=== PATIENT | male | born 1955 | race Caucasian/White ===

== ENCOUNTER 2020-06-17 08:02 | Outpatient (RCR) | payer OTHER, SELFPAY | END 2020-08-07 08:05 | disposition home or self-care (01) | LOC: HO.WCC 08:02 | PROVIDERS: PCP Internal Medicine; Visit Provider Physician Assistant | DX: Z09 Encounter for follow-up examination after completed treatment for conditions other than malignant neoplasm (principal); B35.9 Dermatophytosis, unspecified; E11.9 Type 2 diabetes mellitus without complications | CPT/HCPCS: 11042; 99203; 99212 ==

== ENCOUNTER 2023-08-03 11:12 | Outpatient (REF) | payer OTHER, SELFPAY ==
--- NOTE | ~2023-08-03 | XR_ITS ---
EXAMINATION: XR SHOULDER, RIGHT CLINICAL INFORMATION: Pain in right shoulder. COMPARISON: Right shoulder radiograph 07/23/2023. TECHNIQUE: Two views of the right shoulder. FINDINGS: Redemonstration of a comminuted, displaced fracture of the humeral neck with multiple displaced fragments. Faint calcifications in the adjacent soft tissues may represent some interval healing. Soft tissue calcifications adjacent to the acromion are more characteristic of chronic degenerative process. Rotation of alignment of humeral head relative to glenoid. XR/XR shoulder RT min 2V IMPRESSION: Redemonstration of comminuted, displaced fracture of the humeral neck with multiple displaced fragments. Faint calcifications in the adjacent soft tissues may represent some interval healing.
== END 2023-08-03 11:13 | disposition home or self-care (01) ==
LOC: HO.HOSX 11:12
PROVIDERS: Visit Provider Physician Assistant
DX: S42.201A Unspecified fracture of upper end of right humerus, initial encounter for closed fracture (principal); W18.09XA Striking against other object with subsequent fall, initial encounter; Y93.9 Activity, unspecified; Y92.9 Unspecified place or not applicable; Y99.9 Unspecified external cause status; Z79.899 Other long term (current) drug therapy
CPT/HCPCS: 73030; 99202

== ENCOUNTER 2023-08-03 13:48 | Outpatient (AMB) | payer OTHER, SELFPAY ==
--- NOTE | 2023-08-03 14:07 | A.OFFVIS_ITS ---
<Statement entered by Matteo Lantigua MD - 08/05/23 11:06> I spoke with Haseeb and explained that non operative treatment is standard for this injury. Surgery is indicated because he would like to optimize alignment and prevent loss of motion. I think this is reasonable but I explained that surgery does not guarantee this. I discussed the risks benefits and alternatives including but not limited to the risk of pain, infection, stiffness, need for further surgery as well as potential medical complications such as blood clots, pulmonary embolism and cardiac complications. He expressed understanding. Intake Vital Signs 08/03/23 14:09 Height 5 ft 9 in Intake Visit Reasons: FC - Displaced Rt Humerus fx fall 07/22/23 Intake Note: Haseeb is a 68 year old right hand dominant male who present today for a evaluation of his right shoulder fx, DOI 07/22/23. Patient reports he trpped over his shoes and landed on his right arm. He states that his pain is a 8/10 on the pain scale. Denies numbness and tingling. Allergies No Known Allergies Allergy (Verified 08/03/23 14:08) Medication List - Last Reconciled 08/03/23 by Sebastian Min PA-C blood sugar diagnostic (FreeStyle Lite Strips) As directed diclofenac sodium 75 mg PO BID empagliflozin (Jardiance) 10 mg PO DAILY folic acid 1 mg PO DAILY glipizide ER 10 mg PO DAILY insulin glargine (Lantus Solostar U-100 Insulin) units subcut lisinopril 40 mg PO DAILY metformin ER mg PO omeprazole 20 mg PO DAILY oxycodone 5 mg PO QID PRN sildenafil 100 mg PO DAILY sitagliptin phosphate (Januvia) 100 mg PO DAILY HPI FC - Displaced Rt Humerus fx fall 07/22/23 HPI Details 68-year-old right hand dominant male who presents to the office today for an injury he sustained to his right shoulder on 07/22/23. He states he tripped over his shoes and fell on his right arm. [place] [facility] [facility] xrays obtained along with a CT scan which demonstrated a proximal humerus fracture with angulation of the humeral head. He followed up with an outpatient orthopedic office and non surgical intervention was recommended; however, he is quite active and feels significantly limited by his shoulder injury. He presents today for a second opinion He is quite active and independent with all activities. 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 He has a history of diabetes. His baseline sugar levels are improving since his PCP adjusted his medication. His recent A1c was around 7. PFSH Surgical History (Updated 08/03/23 @ 21:43 by Sebastian Min PA-C) H/O total knee replacement Social History (Updated 08/03/23 @ 21:43 by Sebastian Min PA-C) Household Members: Spouse Patient Tobacco Use Status: Never used Tobacco Review of Systems Const All systems reviewed & are unremarkable except as noted in HPI and below Physical Exam Extrem Other: Right shoulder: Normal to inspection. Diffuse Swelling and tenderness over the proximal humerus which extends down the arm. Anterior deltoid sensation intact. Elbow and wrist ROM intact. NVI. Office Procedures Fracture Care Fracture Billing Code: Fracture Billing Code Results Reviewed Results Reviewed: Xrays were obtained in the office today and personally reviewed by me of the right shoulder show a comminuted proximal humerus fracture with angulation of the humeral head Assessment & Plan Assessment & Plan (1) Fracture of proximal end of right humerus: Code(s): S42.201A - Unspecified fracture of upper end of right humerus, initial encounter for closed fracture Qualifiers: Encounter type: initial encounter Fracture type: closed Fracture morphology: unspecified fracture morphology Qualified Code(s): S42.201A - Unspecified fracture of upper end of right humerus, initial encounter for closed fracture (2) Diabetes: Code(s): E11.9 - Type 2 diabetes mellitus without complications Plan The case was discussed with Dr Lantigua along with the patients concern for non surgical intervention given his activity level. I discussed the extent of the injury to the patient and his and options available, which include surgical vs non surgical intervention. I explained these types of fractures are often treated without surgery, especially when comminution is involved. I explained these fractures often heal well and patients often are able to perform most ADL's without much impairment. I explained there would be some loss of motion with or without surgery as the anatomy is altered. I also explained there may be some injury to the rotator cuff; which we may not be able to determine until later in his recovery process, or if he has surgery, it may be determined intraop. Injury to the rotator cuff could cause some limitations with pain and function. This could also prolong his recovery. I explained to him non operative treatment would consist of 6 weeks in a sling with gentle motion, no FF or abduction type activities. No lifting. Overall recovery likely 6 months. Surgical intervention would involve hardware fixation, followed by 6 weeks of gentle motion without any type of lifting. I explained surgical intervention does not speed up recovery, rather it may allow for the fracture fragments to appear more anatomical. It does not guarantee better functional outcomes. I also explained surgery would be followed by a course of PT to restore motion and strength once the bone is healed and stable enough to proceed. Mr. Dobbs is quite adamant he would like to proceed with surgery given the amount of instability he feels in the arm when he moves. the level of pain and wanting to obtain the best fixation possible so he can have the best chance at returning to prior level of functioning. I explained to the patient the procedure in detail along with the risks, benefits and alternatives. Risks including but not limited to infection, wound breakdown, stiffness, ongoing pain, nonunion or malunion, and possible complications with hardware. He does understand all this and would like to proceed with open reduction internal fixation of the right humerus with Dr. Lantigua. All questions answered. He will be booked accordingly. Orders: Orders XR shoulder RT min 2V Today M25.511 - Pain in right shoulder Patient Instructions: Scribed for Sebastian Min PA-C, by James Nolan medical communication specialist, on 08/03/2023 at 2:00 PM CHELSEA. Sebastian Sanchez PA-C, have personally reviewed and agree with the information entered by the scribe. Coding Level of Care Code New Pt Level 4 (81951) Diagnoses Closed fracture of proximal end of right humerus, unspecified fracture morphology, initial encounter S42.201A Encounter type: initial encounter Fracture type: closed Fracture morphology: unspecified fracture morphology Diabetes E11.9 CPT Codes Fracture Care - Fracture Billing Code: Fracture Billing Code ([id number])
== END 2023-08-03 15:13 | disposition home or self-care (01) ==
PROVIDERS: PCP Internal Medicine; Visit Provider Physician Assistant
DX: S42.201A Unspecified fracture of upper end of right humerus, initial encounter for closed fracture (principal); E11.9 Type 2 diabetes mellitus without complications
CPT/HCPCS: 99204

== ENCOUNTER 2023-08-05 11:24 | Day surgery (SDC) | payer OTHER, SELFPAY ==
--- NOTE | 2023-08-04 13:27 | P.CONAN_ITS ---
Documented by User: Traci Sue NP 08/04/23 13:27 HPI - Anesthesia Eval Consult details Narrative: 68yo M for Right Proximal Humerus Fx ORIF PMFSH Active Problems Active Problems: All Active Problems (Updated 08/03/23 @ 21:45 by Sebastian Min PA-C) Fracture of proximal end of right humerus (Acute) Diabetes (Acute) Surgical History Surgical History (Updated 08/03/23 @ 21:43 by Sebastian Min PA-C) H/O total knee replacement Social History Social History (Updated 08/03/23 @ 21:43 by Sebastian Min PA-C) Household Members: Spouse Patient Tobacco Use Status: Never used Tobacco Second Hand Smoke Exposure: No Use of substances other than those prescribed or required for medical reasons: No Are you DNR?: No Advance Directives: No Advance Directives Information Provided: Yes Advance Directives on File: No Meds Allergies Allergy/AdvReac Type Severity Reaction Status Date / Time No Known Allergies Allergy Verified 08/03/23 14:08 Home Medications Medication Instructions Recorded Confirmed Last Taken Type blood sugar diagnostic (FreeStyle #10 ea 08/03/23 08/03/23 Unknown History Lite Strips) diclofenac sodium 75 mg 75 mg PO BID 08/03/23 08/03/23 Unknown History tablet,delayed release empagliflozin 10 mg tablet 10 mg PO DAILY 08/03/23 08/03/23 Unknown History (Jardiance) folic acid 1 mg tablet 1 mg PO DAILY 08/03/23 08/03/23 Unknown History glipizide 10 mg tablet, extended 10 mg PO DAILY 08/03/23 08/03/23 Unknown History release 24 hr insulin glargine 100 unit/mL (3 unit subcut 08/03/23 08/03/23 Unknown History mL) subcutaneous pen (Lantus Solostar U-100 Insulin) lisinopril 40 mg tablet 40 mg PO DAILY 08/03/23 08/03/23 Unknown History metformin 500 mg 24 hr mg PO 08/03/23 08/03/23 Unknown History tablet,extended release omeprazole 20 mg capsule,delayed 20 mg PO DAILY 08/03/23 08/03/23 Unknown History release oxycodone 5 mg tablet 5 mg PO QID PRN 08/03/23 08/03/23 Unknown History sildenafil 100 mg tablet 100 mg PO DAILY 08/03/23 08/03/23 Unknown History sitagliptin phosphate 100 mg 100 mg PO DAILY 08/03/23 08/03/23 Unknown History tablet () Assessment and Plan Assessment Anesthesia Assessment: Chart Reviewed Documented by User: Christopher Marx MD 08/05/23 14:24 PMFSH Family History Family history of problems with anesthesia: No Surgical History Surgical History (Updated 08/03/23 @ 21:43 by Sebastian Min PA-C) H/O total knee replacement History of Problems with Anesthesia: No Social History Social History (Updated 08/03/23 @ 21:43 by Sebastian Min PA-C) Household Members: Spouse Patient Tobacco Use Status: Never used Tobacco Second Hand Smoke Exposure: No Use of substances other than those prescribed or required for medical reasons: No Are you DNR?: No Advance Directives: No Advance Directives Information Provided: Yes Advance Directives on File: No Meds Allergies Allergy/AdvReac Type Severity Reaction Status Date / Time No Known Allergies Allergy Verified 08/03/23 14:08 Active Medications: last was yesterday Home Medications Medication Instructions Recorded Confirmed Last Taken Type blood sugar diagnostic (FreeStyle #10 ea 08/03/23 08/03/23 Unknown History Lite Strips) diclofenac sodium 75 mg 75 mg PO BID 08/03/23 08/03/23 Unknown History tablet,delayed release empagliflozin 10 mg tablet 10 mg PO DAILY 08/03/23 08/03/23 Unknown History (Jardiance) folic acid 1 mg tablet 1 mg PO DAILY 08/03/23 08/03/23 Unknown History glipizide 10 mg tablet, extended 10 mg PO DAILY 08/03/23 08/03/23 Unknown History release 24 hr insulin glargine 100 unit/mL (3 unit subcut 08/03/23 08/03/23 Unknown History mL) subcutaneous pen (Lantus Solostar U-100 Insulin) lisinopril 40 mg tablet 40 mg PO DAILY 08/03/23 08/03/23 Unknown History metformin 500 mg 24 hr mg PO 08/03/23 08/03/23 Unknown History tablet,extended release omeprazole 20 mg capsule,delayed 20 mg PO DAILY 08/03/23 08/03/23 Unknown H istory release oxycodone 5 mg tablet 5 mg PO QID PRN 08/03/23 08/03/23 Unknown History sildenafil 100 mg tablet 100 mg PO DAILY 08/03/23 08/03/23 Unknown History sitagliptin phosphate 100 mg 100 mg PO DAILY 08/03/23 08/03/23 Unknown History tablet (Januvia) Exam Airway Mallampati Class: II TM Dist: >3cm Neck ROM: Full Loose/Missing/Broken Teeth: No Heart: ok Lungs: ok. SpO2 95% room air. Assessment and Plan Assessment Anesthesia Assessment: Anesthesia Plan Discussed Final Anesthetic Review Family History of Problems with Anesthesia: No History of Problems with Anesthesia: No NPO: Yes ASA Class: III Final Preanesthetic Review: No Changes in Pt Med Stat, Meds/Allgs Chart Reviewed, Consent Obtained/Reviewed and Anes Risks/Benef Reviewed Patient Risk: Intermediate Procedure Risk: Intermediate Anesthetic Plan Anesthetic Plan: GA and Regional Block Disposition: Standard PACU
--- NOTE | ~2023-08-05 | FL_ITS ---
EXAMINATION: XR FLUOROSCOPY WITH IMAGES CLINICAL INFORMATION: ORIF proximal humerus, right. COMPARISON: Previous x-ray 07/23/2023 TECHNIQUE: Fluoroscopy Supervised By: Dr. Matteo Lantigua. Fluoroscopy Time: 0.4 minutes. Cumulative Dose: 9.13 mGy. DAP: 0.158 Gycm2. Images: 2. FINDINGS: Images demonstrate plate and screw fixation of the right proximal humeral fracture with improved alignment. FL/FL guidance in OR IMPRESSION: Fluoroscopic guidance for ORIF of right proximal humeral fracture.
[2023-08-05 11:44] VITALS: BMI 35.5
[2023-08-05 11:54] VITALS: BP 175/76; PULSE 79; RESP 18; TEMP 36.8; O2SAT 95
[2023-08-05] MEDS: Lactated Ringers 1,000 ML 100 ML IVCONT (12:05)
[2023-08-05 12:08] LABS: Glucose, Whole Blood 160 mg/dL (60-115)
--- NOTE | 2023-08-05 16:11 | P.BOP_ITS ---
Brief Operative Note Date of Service: 08/05/23 Pre-op diagnosis: right proximal humerus fracture Post-op diagnosis: same Procedure: ORIF right proximal humerus Implants: [place] Surgeon: Matteo Lantigua MD Anesthesia: GETA Was an Slurry Tank Tender used for this Procedure?: No Estimated blood loss (mL): 100 IV fluids (mL): 1,000 Pathology: none sent Condition: stable Disposition: PACU
[2023-08-05 16:29] VITALS: BP 116/60; PULSE 70; RESP 16; TEMP 36.1; O2SAT 96
[2023-08-05 16:34] VITALS: BP 111/69; PULSE 69; RESP 16; O2SAT 100
[2023-08-05 16:39] VITALS: BP 127/67; PULSE 70; RESP 16; O2SAT 97
[2023-08-05] MEDS: Acetaminophen 325 MG TABLET 650 MG PO (16:42)
[2023-08-05 16:44] VITALS: BP 122/57; PULSE 69; RESP 16; O2SAT 99
[2023-08-05 16:59] VITALS: BP 128/56; PULSE 71; RESP 16; TEMP 36.4; O2SAT 99
--- NOTE | 2023-08-13 08:57 | W.PM.OPN ---
Operative Note Operative Note Date of Service: 08/05/23 Narrative: Date of Service: 08/05/23 Pre-op diagnosis: right proximal humerus fracture Post-op diagnosis: same Procedure: ORIF right proximal humerus Implants: Niels Surgeon: Matteo Lantigua MD Anesthesia: GETA Was an Heavy Equipment Supervisor used for this Procedure?: No Estimated blood loss (mL): 100 IV fluids (mL): 1,000 Pathology: none sent Condition: stable Disposition: PACU Indications: THis is a 68 active M with a 2 part proximal humerus fracture. I reviewed the details of his fracture with him and advised him that surgery, based on large studies, is not assocated with improved outcomes compared to non operative management. I did explain that theoretically we could improve the alignment and this may help his ROM. The radiographs suggested rotation of the head and I do think his ROM will be limited. He was very adamant that everything be done to preserve motion. I, therefore, agreed that surgery could potentially accomplish this and we would try to reduce the fracture to allow for more motion post operatively. He understood the risks benefits and alternatives including but not limited to the risk of pain, infection, stiffness, need for further surgery as well as potential medical complications such as blood clots, pulmonary embolism and cardiac complications. Procedure in detail: Patient was brought to the operating room and placed in the beach chair position on the surgical table. The limb was prepped and draped in standard sterile fashion and a time out was called to identify proper site, proper procedure and IV antibiotics per weight were administered. I began by making a deltopectoral incision from the coracoid to the pectoralis insertion.? Blunt dissection identified the cephalic vein which was retracted laterally.? Blunt dissection was taken down to the 3 sisters. I then dissected proximally and laterally to the fracture. A Fakuda was placed under the deltoid and the fracture was identified. This was a displaced 2 part proximal humerus fracture. I mobilised the head and brought it out of flexion and retroversion and placed a 3 hole locking plate. Bicortical shaft screws were applied and biplanar fluoro was used to confirm reduction. Locking head screws were placed using standard AO technique. I was satisfied with the reduction and the hardware position. Therefore all instrumentation was removed .I then irrigated copiously.? I closed in a layered fashion with absorbable suture and taqueria and the patient was placed in a sterile dressing and an abduction sling.? He was extubated brought to recovery room stable condition there were no known complications.
== END 2023-08-05 17:11 | disposition home or self-care (01) ==
PROVIDERS: PCP Physician Assistant Medical; Visit Provider Orthopaedic Surgery
PROC: (CPT 23615; principal; 2023-08-05 13:30)
DX: S42.291A Other displaced fracture of upper end of right humerus, initial encounter for closed fracture (principal); W01.0XXA Fall on same level from slipping, tripping and stumbling without subsequent striking against object, initial encounter; E11.9 Type 2 diabetes mellitus without complications; Y93.9 Activity, unspecified; Y92.9 Unspecified place or not applicable; Y99.9 Unspecified external cause status; Z79.4 Long term (current) use of insulin; Z79.899 Other long term (current) drug therapy
CPT/HCPCS: 23615; 82947; C1713; J0665; J0690; J2250; J2704; J2795; J3010

== ENCOUNTER → 2023-08-05 11:24 | Outpatient (BNV) | payer OTHER, SELFPAY | PROVIDERS: PCP Physician Assistant Medical; Visit Provider Orthopaedic Surgery | DX: S42.221A 2-part displaced fracture of surgical neck of right humerus, initial encounter for closed fracture (principal) | CPT/HCPCS: 23615 ==

== ENCOUNTER 2023-08-09 12:28 | Outpatient (AMB) | payer OTHER, SELFPAY ==
--- NOTE | 2023-08-09 12:33 | A.OFFVIS_ITS ---
Intake Intake Visit Reasons: PO- Bandage change/Rt Humerus ORIF 08/05 NE Intake Note: Haseeb 68 yr old male presents today for a dressing change/ wound check for his P.O right humerus ORIF from 08/05/[address] Lantigua. Allergies No Known Allergies Allergy (Verified 08/09/23 12:34) HPI PO- Bandage change/Rt Humerus ORIF 08/05 NE HPI Details Haseeb is a 68 year old right hand dominant man who presents S/P right proximal humerus fracture ORIF, DOS: 08/05/[address] Lantigua. He is here for a wound check & dressing change. Mild staining noted on the Aquacel bandage. He says he is doing well. [facility] Surgical History (Updated 08/09/23 @ 12:36 by Rosalio Givens) H/O total knee replacement Social History Household Members: Spouse Patient Tobacco Use Status: Never used Tobacco Second Hand Smoke Exposure: No Review of Systems Const All systems reviewed & are unremarkable except as noted in HPI and below Physical Exam Const General: no acute distress, alert and awake Orientation/consciousness: patient oriented x3 HEENT Head: Yes normocephalic and Yes atraumatic Eyes EOM: EOMs intact bilaterally Resp Effort & Inspection: normal respiratory effort and able to speak in complete sentences Cardio Jugular venous distension: no JVD Skin General skin exam: turgor normal Rashes: no rashes Neuro General: patient oriented x3 Extrem Other: Right Shoulder: Incision site is clean, dry, and intact. [place] intact. No surrounding erythema or drainage. No signs of infection. NVI. Psych Appearance: grossly normal Affect: normal affect Attitude: cooperative Assessment & Plan Assessment & Plan (1) Status post open reduction and internal fixation (ORIF) of fracture: Code(s): Z98.890 - Other specified postprocedural states; Z87.81 - Personal history of (healed) traumatic fracture (2) Fracture of proximal end of right humerus: Code(s): S42.201A - Unspecified fracture of upper end of right humerus, initial encounter for closed fracture Qualifiers: Encounter type: initial encounter Fracture morphology: unspecified fracture morphology Fracture type: closed Qualified Code(s): S42.201A - Uns pecified fracture of upper end of right humerus, initial encounter for closed fracture Plan Haseeb is a 68 year old right hand dominant man who presents S/P right proximal humerus ORIF, DOS: 08/05/[address] Lantigua. He is here for a wound check & dressing change. We removed his Aquacell dressing while in the office today, there was minimal bloody staining. His wound was cleaned with Chlora-prep and redressed with an Aquacell dressing. No signs of infection are ntoed. He will continue to wear his sling, as instructed, and avoid any lifting. He will follow up for his regularly scheduled post-op appointment, sooner prn. Patient Instructions: Scribed for Luda Parra PA-C by Rosalio Givens, medical doctor md, on 08/09/23 at 12:45 PM EST. Coding Level of Care Code Global (65024) Diagnoses Status post open reduction and internal fixation (ORIF) of fracture Z98.890; Z87.81 Closed fracture of proximal end of right humerus, unspecified fracture morphology, initial encounter S42.201A Encounter type: initial encounter Fracture morphology: unspecified fracture morphology Fracture type: closed
== END 2023-08-09 13:12 | disposition home or self-care (01) ==
PROVIDERS: PCP Physician Assistant Medical; Visit Provider Physician Assistant
DX: Z98.890 Other specified postprocedural states (principal); Z87.81 Personal history of (healed) traumatic fracture; S42.201A Unspecified fracture of upper end of right humerus, initial encounter for closed fracture
CPT/HCPCS: 99024

== ENCOUNTER → 2023-08-09 12:28 | Outpatient (BNVA) | payer OTHER, SELFPAY | PROVIDERS: PCP Physician Assistant Medical; Visit Provider Physician Assistant | DX: S42.201D Unspecified fracture of upper end of right humerus, subsequent encounter for fracture with routine healing (principal); Z98.890 Other specified postprocedural states; Z87.81 Personal history of (healed) traumatic fracture | CPT/HCPCS: 99212 ==

== ENCOUNTER 2023-08-15 10:49 | Outpatient (AMB) | payer OTHER, SELFPAY ==
--- NOTE | 2023-08-15 10:50 | MHC.OFFVIS ---
Intake Intake Visit Reasons: PO-Rt Humerus ORIF 08/05 Intake Note: Haseeb 68 yr old male presents today for his P.O right humerus ORIF from 08/05/[address] Lantigua. Allergies No Known Allergies Allergy (Verified 08/15/23 10:53) HPI PO-Rt Humerus ORIF 08/05 HPI Details 68-year-old male who presents in the office today 10 days status post right proximal humerus ORIF, which was performed on 08/05/[address] Lantigua. He is wearing the Ultrasling as directed. Pain is managed. No additional complaints. [facility] Surgical History (Updated 08/09/23 @ 12:36 by Rosalio Givens) H/O total knee replacement Social History (Reviewed 08/09/23 @ 12:34 by Vanessa Guerrero [facility] [place]) Household Members: Spouse Patient Tobacco Use Status: Never used Tobacco Second Hand Smoke Exposure: No Review of Systems Const All systems reviewed & are unremarkable except as noted in HPI and below Physical Exam Const General: cooperative, healthy appearing and no acute distress Resp Effort & Inspection: normal respiratory effort and able to speak in complete sentences Cardio Rate: regular rate Peripheral pulses: Peripheral pulses 2+ throughout GI Palpation (GI): Soft to palpation Skin Lesions: no lesions Rashes: no rashes Extrem Other: Right shoulder: Incision site is clean, dry, and intact. [place] intact. No surrounding erythema or drainage. No signs of infection. NVI. Right hand: Normal to inspection. No ecchymosis, erythema, or edema. Able to perform full finger flexion, extension, abduction, adduction, finger cross, okay sign, and thumbs up without deficit. Able to make a closed fist. Sensation intact. Capillary refill is brisk. Radial pulse intact. Assessment & Plan Assessment & Plan (1) Status post open reduction and internal fixation (ORIF) of fracture: Code(s): Z98.890 - Other specified postprocedural states; Z87.81 - Personal history of (healed) traumatic fracture (2) Fracture of proximal end of right humerus: Code(s): S42.201A - Unspecified fracture of upper end of right humerus, initial encounter for closed fracture Qualifiers: Encounter type: initial encounter Fracture morphology: unspecified fracture morphology Fracture type: closed Qualified Code(s): S42.201A - Unspecified fracture of upper end of right humerus, initial encounter for closed fracture Plan Mr. Dobbs is a 68-year-old male who presents in the office today 10 days status post right proximal humerus ORIF, which was performed on 08/05/[address] Lantigua. [place] were removed and steri-stripes were applied while in the office today. Dr. Lantigua was available to see the patient with me today and a collaborative treatment plan was made. He was educated to refrain from performing forward flexion and extension at this time. He may work on gentle elbow, wrist, and hand ROM. I have place a referral to physical therapy to work on pendulum exercises of the elbow, wrist, and hand. Follow up will be in 4 weeks with repeat x-rays, or sooner if needed. X-rays of the right shoulder which were obtained while in the office today and were reviewed by me, Luda Parra PA-C, revealed intact orthopedic hardware and a commuted proximal humerus fracture. Orders: Orders XR humerus RT Today S42.201A - Unspecified fracture of upper end of right humerus, initial encounter for closed fracture, Z87.81 - Personal history of (healed) traumatic fracture, Z98.890 - Other specified postprocedural states Patient Instructions: Scribed for Luda Parra PA-C by Bethany Granados pediatric medical assistant, on 08/15/2023 at 10:56 am, EST. Coding Level of Care Code Global (48357) Diagnoses Status post open reduction and internal fixation (ORIF) of fracture Z98.890; Z87.81 Closed fracture of proximal end of right humerus, unspecified fracture morphology, initial encounter S42.201A Encounter type: initial encounter Fracture morphology: unspecified fracture morphology Fracture type: closed
== END 2023-08-15 11:37 | disposition home or self-care (01) ==
PROVIDERS: PCP Physician Assistant Medical; Visit Provider Physician Assistant
DX: Z98.890 Other specified postprocedural states (principal); Z87.81 Personal history of (healed) traumatic fracture; S42.201A Unspecified fracture of upper end of right humerus, initial encounter for closed fracture
CPT/HCPCS: 99024

== ENCOUNTER 2023-08-15 10:49 | Outpatient (REF) | payer OTHER, SELFPAY ==
--- NOTE | ~2023-08-15 | XR_ITS ---
EXAMINATION: XR HUMERUS, RIGHT CLINICAL INFORMATION: Fracture of right humerus. COMPARISON: X-ray the right shoulder July 2023. Intraoperative imaging performed 08/15/2023. TECHNIQUE: AP and lateral views of the right humerus. FINDINGS: Plate and screw fixation noted along the proximal humerus crossing the previously noted comminuted proximal humerus fracture. There is persistent posterior and lateral displacement of the distal fragment but overall decreased displacement and improved alignment compared to previous. Comparison with the intraoperative imaging is limited given the difference in projections. Mild arthrosis of the acromioclavicular joint. Skin taqueria in place. XR/XR humerus RT IMPRESSION: Postop changes related to orthopedic fixation of previously noted humerus fracture. Overall improved alignment compared with the preoperative examination. However question slight increased displacement of the proximal fragment compared with the intraoperative imaging. Exact comparison is limited given the differences in imaging exams. Continued follow-up may help evaluate for any change in alignment compared with the intraoperative exam.
== END 2023-08-15 10:50 | disposition home or self-care (01) ==
LOC: HO.HOSX 10:49
PROVIDERS: PCP Physician Assistant Medical; Visit Provider Physician Assistant
DX: S42.201D Unspecified fracture of upper end of right humerus, subsequent encounter for fracture with routine healing (principal); Z98.890 Other specified postprocedural states; X58.XXXD Exposure to other specified factors, subsequent encounter
CPT/HCPCS: 73060; 99212

== ENCOUNTER 2023-09-13 09:27 | Outpatient (REF) | payer OTHER, SELFPAY ==
--- NOTE | ~2023-09-13 | XR_ITS ---
EXAMINATION: XR SHOULDER, RIGHT CLINICAL INFORMATION: Right shoulder pain. COMPARISON: August 15, 2023. TECHNIQUE: Two views of the right shoulder. XR/XR shoulder RT min 2V FINDINGS/IMPRESSION: Examination demonstrates a comminuted fracture of the right humeral head. The patient is status post metallic fixation plate and screws across the humeral head and proximal humeral diaphysis. Major bony fragments remain displaced, similar compared with August 15, 2023. No obvious bony callus formation is appreciated. The images are available for orthopedic review on PACS.
== END 2023-09-13 09:28 | disposition home or self-care (01) ==
LOC: HO.HOSX 09:27
PROVIDERS: Visit Provider Physician Assistant
DX: Z98.890 Other specified postprocedural states (principal); Z87.81 Personal history of (healed) traumatic fracture; E11.9 Type 2 diabetes mellitus without complications
CPT/HCPCS: 73030; 99212

== ENCOUNTER 2023-09-13 10:36 | Outpatient (AMB) | payer OTHER, SELFPAY ==
--- NOTE | 2023-09-13 10:53 | A.OFFVIS_ITS ---
Intake Vital Signs 09/13/23 10:54 Height 5 ft 9 in Weight 240 lb BMI 35.4 Intake Visit Reasons: PO-Rt Humerus ORIF 08/05 NE Intake Note: Haseeb is a 68 yr old male presents today for his post op appointment s/p right humerus ORIF,08/05/23 NE. Patient reports he is doing well however complaints of burning pain last night making it difficult to sleep, Finds no relief with Tylenol. He continues to do at home gentle ROM exercises. Allergies No Known Allergies Allergy (Verified 09/13/23 10:57) HPI PO-Rt Humerus ORIF 08/05 NE HPI Details 68-year-old male who presents in the off ice today 1 month status post right proximal humerus ORIF, which was performed on 08/05/[address] Lantigua. I last saw the patient in the office on 08/15/2024 where he was educated to refrai n from performing forward flexion and extension. He was referred to physical therapy to work on pendulum exercises of the elbow, wrist, and hand. While in the office today the patient reports he is doing well. However, he complains of a burning pain in the right shoulder beginning last night. He states he finds no relief with Tylenol. He states he continue to work on gentle ROM home exercises. [facility] Surgical History H/O total knee replacement Social History Household Members: Spouse Patient Tobacco Use Status: Never used Tobacco Second Hand Smoke Exposure: No Review of Systems Const All systems reviewed & are unremarkable except as noted in HPI and below Physical Exam Vital Signs: BMI result Body Mass Index 35.4 Const General: cooperative, healthy appearing and no acute distress Resp Effort & Inspection: normal respiratory effort and able to speak in complete sentences Cardio Rate: regular rate Peripheral pulses: Peripheral pulses 2+ throughout GI Palpation (GI): Soft to palpation Skin Lesions: no lesions Rashes: no rashes Extrem Other: Right shoulder: Incision site is clean, dry, and intact. No surrounding erythema or drainage. No signs of infection. Able to perform full elbow, wrist, and hand ROM. ROM of the shoulder was not performed. NVI. Assessment & Plan Assessment & Plan (1) Status post open reduction and internal fixation (ORIF) of fracture: Comment: Right proximal humerus ORIF 08/05/2023 Dr. Matteo Lantigua. Code(s): Z98.890 - Other specified postprocedural states; Z87.81 - Personal history of (healed) traumatic fracture (2) Diabetes: Code(s): E11.9 - Type 2 diabetes mellitus without complications Plan Mr. Dobbs is a 68-year-old male who presents in the office today 1 month status post right proximal humerus ORIF, which was performed on 08/05/[address] Hunter holcomb. I last saw the patient in the office on 08/15/2024 where he was educated to refrain from performing forward flexion and extension. He was referred to physical therapy to work on pendulum exercises of the elbow, wrist, and hand. While in the office today the patient reports he is doing well. However, he complains of a burning pain in the right shoulder beginning last night. He states he finds no relief with Tylenol. He states he continue to work on gentle ROM home exercises. I discussed the case with Dr. Lantigua, who would personally like to see the patient in the office later this week to discuss his healing progress. Follow up will be with Dr. Lantigua, or sooner if needed. X-rays of the right shoulder which were obtained while in the office today and were reviewed by me, Luda Parra PA-C, revealed slight increased displacement of the proximal humerus compared to fixation x-rays obtained on 08/13/2023. Orders: Orders XR shoulder RT min 2V Today M25.519 - Pain in unspecified shoulder Patient Instructions: Scribed for Luda Parra PA-C by Bethany Granados manager of medical, on 09/13/2023 at 10:50 am, EST. Coding Level of Care Code Global (84879) Diagnoses Status post open reduction and internal fixation (ORIF) of fracture Z98.890; Z87.81 Diabetes E11.9
[2023-09-13 10:54] VITALS: BMI 35.4
== END 2023-09-13 11:25 | disposition home or self-care (01) ==
PROVIDERS: PCP Physician Assistant Medical; Visit Provider Physician Assistant
DX: Z98.890 Other specified postprocedural states (principal); Z87.81 Personal history of (healed) traumatic fracture; E11.9 Type 2 diabetes mellitus without complications
CPT/HCPCS: 99024

== ENCOUNTER 2023-09-16 09:27 | Outpatient (AMB) | payer OTHER, SELFPAY ==
--- NOTE | 2023-09-16 09:33 | MHC.OFFVIS ---
Intake Intake Visit Reasons: PO-Rt Humerus ORIF 08/05 NE Intake Note: Haseeb is a 68 year old male who presents today VIA telephone for a follow up of his right arm, Rt Humerus ORIF 08/05/23 Allergies No Known Allergies Allergy (Verified 09/13/23 10:57) HPI PO-Rt Humerus ORIF 08/05 NE HPI Details Haseeb is a 68 year old man who presents for a telehealth appointment ~5 weeks S/p right proximal humerus ORIF. He was last seen by MONIK Parra on 09/13/23 where he complained of a burning pain that began recently in his shoulder. He has been attending PT and doing at-home exercise. [facility] Surgical History H/O total knee replacement Social History Household Members: Spouse Patient Tobacco Use Status: Never used Tobacco Second Hand Smoke Exposure: No Review of Systems Const All systems reviewed & are unremarkable except as noted in HPI and below Physical Exam Const General: no acute distress, alert and awake Orientation/consciousness: patient oriented x3 Resp Effort & Inspection: normal respiratory effort and able to speak in complete sentences Neuro General: patient oriented x3 Results Reviewed Results Reviewed: I personally reviewed relevant radiographs. Examination demonstrates a comminuted fracture of the right humeral head. The patient is status post metallic fixation plate and screws across the humeral head and proximal humeral diaphysis. Major bony fragments remain displaced, similar compared with August 15, 2023. No obvious bony callus formation is appreciated. Assessment & Plan Assessment & Plan (1) Status post open reduction and internal fixation (ORIF) of fracture: Code(s): Z98.890 - Other specified postprocedural states; Z87.81 - Personal history of (healed) traumatic fracture Plan: The radiographs continue to demonstrate change in hardware alignment compared in intra-op films. There is displacement of the tuberosity fragment. I discussed my concern with Haseeb. I think this is nearing hardware failure. He is feeling better however and using his arm more. I would like to see him in 2 weeks. In the meantime he will continue gentle activity as tolerated with no resistance and no overhead lifting.. Plan Prepared for Matteo Lantigua MD by Rosalio Givens, medical records technician, on 09/16/23 at 9:37 AM, EST. Telehealth Telehealth Location of provider rendering services: practice address Location of patient: address on file Patient Identification confirmed using: Name, : Yes Telehealth method: voice only Patient verbally consented to treatment: Yes Patient verbally consented to billing insurance company: Yes Patient informed of any privacy concerns related to visit: Yes Minutes spent on Phone/Video with Pt.: 10 Coding Level of Care Code Global (15095) Diagnoses Status post open reduction and internal fixation (ORIF) of fracture Z98.890; Z87.81
== END 2023-09-16 10:54 | disposition home or self-care (01) ==
LOC: HO.HOS 09:27
PROVIDERS: PCP Physician Assistant Medical; Visit Provider Orthopaedic Surgery
DX: Z98.890 Other specified postprocedural states (principal); Z87.81 Personal history of (healed) traumatic fracture
CPT/HCPCS: 99024

== ENCOUNTER → 2023-09-16 09:27 | Outpatient (BNVA) | payer OTHER, SELFPAY | PROVIDERS: PCP Physician Assistant Medical; Visit Provider Orthopaedic Surgery | DX: S42.291D Other displaced fracture of upper end of right humerus, subsequent encounter for fracture with routine healing (principal); Z98.890 Other specified postprocedural states | CPT/HCPCS: 99212 ==

== ENCOUNTER 2023-10-03 07:27 | Outpatient (REF) | payer OTHER, SELFPAY ==
--- NOTE | ~2023-10-03 | XR_ITS ---
EXAMINATION: XR SHOULDER, RIGHT CLINICAL INFORMATION: Right shoulder pain. COMPARISON: Previous radiographs, most recent, 09/13/2023 TECHNIQUE: 2 views of the right shoulder. FINDINGS: Slightly more lucent appearance of the humeral head at the level of proximal screws on one of the 2 views. Otherwise, no significant change in alignment of displaced proximal right humeral fracture with hardware. The fragmented appearance to the superior humeral head is unchanged. Visualized ribs and lung are unremarkable. XR/XR shoulder RT min 2V IMPRESSION: Redemonstration displaced proximal right humeral fracture with sideplate and screws. Question slight increasing lucency right humeral head about the proximal screws.
== END 2023-10-03 07:28 | disposition home or self-care (01) ==
LOC: HO.HOSX 07:27
PROVIDERS: Visit Provider Orthopaedic Surgery
DX: M25.511 Pain in right shoulder (principal); Z96.611 Presence of right artificial shoulder joint; Z87.81 Personal history of (healed) traumatic fracture
CPT/HCPCS: 73030; 99212

== ENCOUNTER 2023-10-03 13:20 | Outpatient (AMB) | payer OTHER, SELFPAY ==
[2023-10-03 13:29] VITALS: BMI 36.8
--- NOTE | 2023-10-03 13:29 | MHC.OFFVIS ---
Intake Vital Signs 10/03/23 13:29 Height 5 ft 9 in Weight 249 lb BMI 36.8 Intake Visit Reasons: OV-Rt Humerus ORIF 08/05/23-follow up Intake Note: Haseeb is a 68 year old right hand dominant male presents today for his post op appointment s/p right humerus ORIF,08/05/23 NE. At his last visit hardware alignment/failure was discussed. Patient reports that he is feeling better every day Allergies No Known Allergies Allergy (Verified 10/03/23 13:32) HPI OV-Rt Humerus ORIF 08/05/23-follow up HPI Details Haseeb is a 68 year old man who returns ~7 weeks S/P right proximal humerus ORIF. There are concerns over possible hardware failure. He says he is doing well and is happy with the use of his shoulder. [facility] Surgical History H/O total knee replacement Social History Household Members: Spouse Patient Tobacco Use Status: Never used Tobacco Second Hand Smoke Exposure: No Review of Systems Const All systems reviewed & are unremarkable except as noted in HPI and below Physical Exam Vital Signs: BMI result Body Mass Index 36.8 Const General: no acute distress, alert and awake Orientation/consciousness: patient oriented x3 HEENT Head: Yes normocephalic and Yes atraumatic Eyes EOM: EOMs intact bilaterally Resp Effort & Inspection: normal respiratory effort and able to speak in complete sentences Cardio Jugular venous distension: no JVD Skin General skin exam: turgor normal Rashes: no rashes Neuro General: patient oriented x3 Extrem Other: ER to 15 passive abduction to 60 active FF to 50 Psych Appearance: grossly normal Affect: normal affect Attitude: cooperative Results Reviewed Results Reviewed: IMPRESSION: Redemonstration displaced proximal right humeral fracture with sideplate and screws. Question slight increasing lucency right humeral head about the proximal screws. Assessment & Plan Assessment & Plan (1) Status post open reduction and internal fixation (ORIF) of fracture: Code(s): Z98.890 - Other specified postprocedural states; Z87.81 - Personal history of (healed) traumatic fracture Plan: There is partial screw cutout and loss of fixation that is stable and unchanged from prior. He feels well and I ordered PT for gentle ROM. I will see him back in one month. I have a high index of suspicion that this will require hemiarthroplasty but he is moving his shoulder well and has minimal pain. Plan Prepared for Matteo Lantigua MD by Rosalio Givens, medical office scheduler, on 10/03/23 at 1:34 PM, EST. Orders: Orders XR shoulder RT min 2V 10/03/23 M25.519 - Pain in unspecified shoulder PT Evaluation and Treatment Today Z87.81 - Personal history of (healed) traumatic fracture, Z98.890 - Other specified postprocedural states Coding Level of Care Code Global (60322) Diagnoses Status post open reduction and internal fixation (ORIF) of fracture Z98.890; Z87.81
== END 2023-10-03 14:06 | disposition home or self-care (01) ==
PROVIDERS: PCP Physician Assistant Medical; Visit Provider Orthopaedic Surgery
DX: Z98.890 Other specified postprocedural states (principal); Z87.81 Personal history of (healed) traumatic fracture
CPT/HCPCS: 99024

== ENCOUNTER 2023-11-03 09:24 | Outpatient (REF) | payer OTHER, SELFPAY ==
--- NOTE | ~2023-11-03 | XR_ITS ---
EXAMINATION: XR SHOULDER, RIGHT CLINICAL INFORMATION: Pain and unspecified shoulder. COMPARISON: 10/05/2023 TECHNIQUE: 3 views of the right shoulder. FINDINGS: Redemonstration of displaced proximal right humeral fracture with orthopedic hardware including plate and multiple screws. Fracture lines are visible, but less distinct, suggesting some interval healing. Alignment is improved. Fragmented appearance of superior humeral head as previously noted is less conspicuous. XR/XR shoulder RT min 2V IMPRESSION: Redemonstration of displaced proximal right humeral fracture with orthopedic hardware including plate and multiple screws. Fracture lines are visible, but less distinct, suggesting some interval healing. Alignment is improved.
== END 2023-11-03 09:25 | disposition home or self-care (01) ==
LOC: HO.HOSX 09:24
PROVIDERS: Visit Provider Orthopaedic Surgery
DX: M25.511 Pain in right shoulder (principal); Z98.890 Other specified postprocedural states; Z87.81 Personal history of (healed) traumatic fracture
CPT/HCPCS: 73030; 99212

== ENCOUNTER 2023-11-03 10:39 | Outpatient (AMB) | payer OTHER, SELFPAY ==
--- NOTE | 2023-11-03 10:50 | A.OFFVIS_ITS ---
Intake Vital Signs 11/03/23 10:57 Height 5 ft 9 in Weight 245 lb BMI 36.2 Intake Visit Reasons: PO -Rt Humerus ORIF 08/05/23-one month follow up Intake Note: Haseeb is a 68 year old right hand dominant male presents today for his post op appointment s/p right humerus ORIF,08/05/23 NE. At his last visit hardware alignment/failure was discussed. Patient reports that he is feeling pain in the arm, described as a burning pain. Allergies No Known Allergies Allergy (Verified 10/03/23 13:32) HPI PO -Rt Humerus ORIF 08/05/23-one month follow up HPI Details Haseeb is 3 months status post right humerus ORIF. He states he injured his right shoulder slightly over last couple of days and has anterior bicipital pain but overall he feels like he has been improving. He has only been doing physical therapy for a week. He does describe pain and inability to abduct. He does feel much improved from last visit however [facility] Surgical History H/O total knee replacement Social History Household Members: Spouse Patient Tobacco Use Status: Never used Tobacco Second Hand Smoke Exposure: No Physical Exam Vital Signs: BMI result Body Mass Index 36.2 Extrem Other: 25 degrees of passive external rotation. 90 degrees of passive abduction. There is no pain with these maneuvers. Approximately 20-30 degrees of isolated glenohumeral abduction without scapular recruitment. TTP anterior biceps No painful crepitus with passive ROM Results Reviewed Results Reviewed: I personally reviewed relevant radiographs. No change in hardware alignment compared to prior Fracture line still evident and lucency around screws but articulation grossly intact Assessment & Plan Assessment & Plan (1) Status post open reduction and internal fixation (ORIF) of fracture: Code(s): Z98.890 - Other specified postprocedural states; Z87.81 - Personal history of (healed) traumatic fracture Plan: Has only been in PT for one week. No evidence cliniaclly of screw penetration into joint, f/u 4 weeks cont PT Orders: Orders XR shoulder RT min 2V Today M25.519 - Pain in unspecified shoulder Coding Level of Care Code Global (14098) Diagnoses Status post open reduction and internal fixation (ORIF) of fracture Z98.890; Z87.81
[2023-11-03 10:57] VITALS: BMI 36.2
== END 2023-11-03 11:39 | disposition home or self-care (01) ==
PROVIDERS: PCP Physician Assistant Medical; Visit Provider Orthopaedic Surgery
DX: Z98.890 Other specified postprocedural states (principal); Z87.81 Personal history of (healed) traumatic fracture
CPT/HCPCS: 99024

== ENCOUNTER 2023-12-08 07:30 | Outpatient (REF) | payer OTHER, SELFPAY ==
--- NOTE | ~2023-12-08 | XR_ITS ---
EXAMINATION: XR SHOULDER, RIGHT CLINICAL INFORMATION: Reason for Exam M25.519 - Pain in unspecified shoulder COMPARISON: Shoulder radiographs 01/03/2024 TECHNIQUE: Three views of the shoulder. FINDINGS: Status post ORIF of the proximal comminuted humeral fracture, in unchanged alignment without appreciable bony bridging bony callus formation. There is some lucency surrounding one of the surgical screws in the humeral head and one of the screws in the humeral neck which could reflect hardware loosening. Mild degenerative changes of the shoulder. Soft tissues are unremarkable. XR/XR shoulder RT min 2V IMPRESSION: 1. Status post ORIF of the proximal comminuted humeral fracture, in unchanged alignment without appreciable bony bridging bony callus formation. There is some lucency surrounding one of the surgical screws in the humeral head and one of the screws in the humeral neck which could reflect hardware loosening. 2. Mild degenerative changes of the shoulder.
== END 2023-12-08 07:31 | disposition home or self-care (01) ==
LOC: HO.HOSX 07:30
PROVIDERS: Visit Provider Orthopaedic Surgery
DX: M25.511 Pain in right shoulder (principal); S42.201D Unspecified fracture of upper end of right humerus, subsequent encounter for fracture with routine healing; X58.XXXD Exposure to other specified factors, subsequent encounter; Z87.81 Personal history of (healed) traumatic fracture; Z98.890 Other specified postprocedural states
CPT/HCPCS: 73030; 99212

== ENCOUNTER 2023-12-08 08:21 | Outpatient (AMB) | payer OTHER, SELFPAY ==
--- NOTE | 2023-12-08 08:33 | MHC.OFFVIS ---
Intake Vital Signs 12/08/23 08:34 Height 5 ft 9 in Weight 245 lb BMI 36.2 Intake Visit Reasons: PO-Rt Humerus ORIF 08/05/23- follow up Intake Note: Haseeb is a 68 year old right hand dominant male presents today for his post op appointment s/p right humerus ORIF,08/05/23 NE. At last visit there was no evidence clinically of screw penetration into joint. He reports that the arm is feeling better each day, he has been working on his ROM and working with Physical therapy. Allergies No Known Allergies Allergy (Verified 10/03/23 13:32) HPI PO-Rt Humerus ORIF 08/05/23- follow up HPI Details Haseeb is a 68 year old right hand dominant male presents today for his post op appointment s/p right humerus ORIF,08/05/23 NE. At last visit there was no evidence clinically of screw penetration into joint. He reports that the arm is feeling better each day, he has been working on his ROM and working with Physical therapy. [facility] Surgical History H/O total knee replacement Social History Household Members: Spouse Patient Tobacco Use Status: Never used Tobacco Second Hand Smoke Exposure: No Physical Exam Vital Signs: BMI result Body Mass Index 36.2 Extrem Other: Passive range of motion: 20 degrees of external rotation 50 degrees of abduction and 70 degrees of forward flexion with no pain Active motion limited by poor mechanics and stiffness. Can get his hand to his mouth Results Reviewed Results Reviewed: I personally reviewed relevant radiographs. No change in proximal humerus fracture alignment. There is partial screw cut out with maintained articular surface and suggestion of healing. Assessment & Plan Assessment & Plan (1) Status post open reduction and internal fixation (ORIF) of fracture: Code(s): Z98.890 - Other specified postprocedural states; Z87.81 - Personal history of (healed) traumatic fracture Plan: Status post ORIF right proximal humerus. There was partial hardware failure but articular surface is maintained and he feels like he is improving with physical therapy. I had a long discussion with him and his and recommend continued increasing his active and passive motion. He will follow up in 6 weeks. Orders: Orders XR shoulder RT min 2V Today M25.519 - Pain in unspecified shoulder Coding Level of Care Code Est Pt Level 4 (29401) Global (31820) Diagnoses Status post open reduction and internal fixation (ORIF) of fracture Z98.890; Z87.81
[2023-12-08 08:34] VITALS: BMI 36.2
== END 2023-12-08 09:12 | disposition home or self-care (01) ==
PROVIDERS: PCP Physician Assistant Medical; Visit Provider Orthopaedic Surgery
DX: S42.221D 2-part displaced fracture of surgical neck of right humerus, subsequent encounter for fracture with routine healing (principal); Z87.81 Personal history of (healed) traumatic fracture
CPT/HCPCS: 99213

== ENCOUNTER 2024-01-26 09:21 | Outpatient (REF) | payer OTHER, SELFPAY ==
--- NOTE | ~2024-01-26 | XR_ITS ---
EXAMINATION: XR SHOULDER, RIGHT CLINICAL INFORMATION: Reason for Exam M25.519 - Pain in unspecified shoulder COMPARISON: Shoulder radiographs 12/08/2023 TECHNIQUE: Four views of the shoulder. FINDINGS: Again seen is ORIF of the fracture of the humeral head and neck persistent lucency of the fracture margins. There is some perihardware lucency surrounding the most proximal screw in the humeral neck and one of the screws in the humeral head similar to prior. Mild osteoarthritis of the shoulder. Soft tissues are unremarkable. XR/XR shoulder RT min 2V IMPRESSION: Again seen is ORIF of the fracture of the humeral head and neck persistent lucency of the fracture margins. There is some perihardware lucency surrounding the most proximal screw in the humeral neck and one of the screws in the humeral head similar to prior, which may reflect hardware loosening. Mild osteoarthritis of the shoulders similar to prior.
== END 2024-01-26 09:22 | disposition home or self-care (01) ==
LOC: HO.HOSX 09:21
PROVIDERS: Visit Provider Orthopaedic Surgery
DX: S42.201D Unspecified fracture of upper end of right humerus, subsequent encounter for fracture with routine healing (principal)
CPT/HCPCS: 73030; 99212

== ENCOUNTER 2024-01-26 09:50 | Outpatient (AMB) | payer OTHER, SELFPAY ==
--- NOTE | 2024-01-26 10:15 | MHC.OFFVIS ---
Intake Visit Reasons: ov-Rt Humerus ORIF 08/05/23 Intake Note: Haseeb is a 68 year old right hand dominant male presents today for his post op appointment s/p right humerus ORIF,08/05/23 NE. There was partial hardware failure but articular surface is maintained and he feels like he is improving with physical therapy. He reports that he is feeling well with no present concerns Allergies No Known Allergies Allergy (Verified 01/26/24 10:16) HPI HPI ov-Rt Humerus ORIF 08/05/23: Details: Haseeb is a 68 year old right hand dominant male presents today for his post op appointment s/p right humerus ORIF,08/05/23 NE. There was partial hardware failure but articular surface is maintained and he feels like he is improving with physical therapy. He reports that he is feeling well with no present concerns PFSH Surgical History H/O total knee replacement Social History Household Members: Spouse Patient Tobacco Use Status: Never used Tobacco Second Hand Smoke Exposure: No Physical Exam Extrem Other: ER to 30 deg FF to 70 Abd to 60 No pain Results Reviewed Results Reviewed: I personally reviewed relevant radiographs. Stable s/p ORIF right proximal humerus No evidence of AVN Screw cutout unchanged and mild Articular surface preserved Assessment & Plan Assessment & Plan (1) Status post open reduction and internal fixation (ORIF) of fracture: Code(s): Z98.890 - Other specified postprocedural states; Z87.81 - Personal history of (healed) traumatic fracture Category: Surgical Plan: Continue progressive ROM and strengthening Discussed rTSA but he is improving and without pain f/u 2 months Orders: Orders XR shoulder RT min 2V Today M25.519 - Pain in unspecified shoulder Coding Level of Care Code Est Pt Level 4 (07251) Diagnoses Status post open reduction and internal fixation (ORIF) of fracture Z98.890; Z87.81
== END 2024-01-26 10:36 | disposition home or self-care (01) ==
PROVIDERS: PCP Physician Assistant Medical; Visit Provider Orthopaedic Surgery
DX: S42.221D 2-part displaced fracture of surgical neck of right humerus, subsequent encounter for fracture with routine healing (principal); Z87.81 Personal history of (healed) traumatic fracture
CPT/HCPCS: 99213

== ENCOUNTER 2024-03-08 09:56 | Outpatient (REF) | payer SELFPAY ==
--- NOTE | ~2024-03-08 | XR_ITS ---
EXAMINATION: XR SHOULDER, RIGHT CLINICAL INFORMATION: Pain shoulder. COMPARISON: 01/26/2024. TECHNIQUE: Three views of the right shoulder. FINDINGS: Diffuse demineralization. Redemonstration of ORIF of the fracture of the humeral head and neck with persistent lucency of the fracture lines redemonstration of perihardware lucency surrounding the most proximal screw in the humeral neck and one of the screws in the humeral head. Mild osteoarthritis. XR/XR shoulder RT min 2V IMPRESSION: Redemonstration of ORIF of the fracture of the humeral head and neck with persistent lucency of the fracture lines redemonstration of perihardware lucency surrounding the most proximal screw in the humeral neck and one of the screws in the humeral head.
== END 2024-03-08 09:57 | disposition home or self-care (01) ==
LOC: HO.HOSX 09:56
PROVIDERS: Visit Provider Physician Assistant
DX: S42.201D Unspecified fracture of upper end of right humerus, subsequent encounter for fracture with routine healing (principal)
CPT/HCPCS: 73030; 99212

== ENCOUNTER 2024-03-08 10:44 | Outpatient (AMB) | payer SELFPAY ==
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
== END 2024-03-08 11:41 | disposition home or self-care (01) ==
LOC: HO.HOS 10:44
PROVIDERS: PCP Physician Assistant Medical; Visit Provider Physician Assistant
DX: S42.221D 2-part displaced fracture of surgical neck of right humerus, subsequent encounter for fracture with routine healing (principal); Z87.81 Personal history of (healed) traumatic fracture
CPT/HCPCS: 99213

== ENCOUNTER 2024-03-23 08:22 | Outpatient (REF) | payer OTHER, SELFPAY | END 2024-03-23 08:23 | disposition home or self-care (01) | LOC: HO.HOSX 08:22 | PROVIDERS: Visit Provider Orthopaedic Surgery | DX: Z13.89 Encounter for screening for other disorder (principal) ==

== ENCOUNTER 2024-05-03 11:00 | Outpatient (RCR) | payer OTHER, SELFPAY ==
--- NOTE | 2023-10-25 15:07 | MHC.PT.EP ---
[facility] [place] [facility] [place] [facility] [place] [facility] [address] Juan Rosario [address] [phone] F: [phone] F: [phone] F: [phone] F: [phone] Physical Therapy Plan of Care Date of Evaluation: 10/25/23 Date of Surgery: 08/05/23 Diagnosis: PT eval and treat: Z89.890 Other specified post procedural states, Z87.81 Personal history of healed traumatic fracture, Active and active assisted ROM, R Humerus, signed by Dr. 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 Lantigua office on 10/06/23, s/p history of humerus R ORIF 08/05/23 following history of fall in his kitchen on tuesday in June 2023. Pt had series xrays as noted above 07/24/23 with most recent xray questioning hardware failure IMPRESSION: Redemonstration displaced proximal right humeral fracture with sideplate and screws. Question slight increasing lucency right humeral head about the proximal screws. . Pt states he dislocated his shoulder during his fall in his kitchen when tripping over his shoes, resulting in head trauma resulting in knocking himself unconscious, requiring ambulance transport to ER with five taqueria to close his head wound. Pt currently reports ongoing sling use prn, reports attempting to paint/work minimally in his car workshop at home, with surge of pain the past two days. He reports intolerance for dressing,lifting, reaching, driving, and lifting. He is accompanied by his today for PT eval. He states he has not been icing his shoulder but has take preference to use of MHP to ease his sx with use of tylenol which does not help aide his pain. He reports he is struggling with not being able to work as he is self employed and he having more pain with recent activity he trialed two days ago when attempting to pain something. He was educated in the importance of not performing lifting/reaching/abrupt movements with R UE, educated in modification of movement/activity, educated re: goals of improving AROM/AAROM in HEP, goals of HEP, encouragement for ice to manage his sx, and importance in weaning from use of sling as able. He was educated in the benefit in using pillows to support his arm during sleep/stationary positions. Pt will be seeing Dr. Lantigua next week on 11/03/23. Pt states the discussion of failing hardware/status of healing was openly discussed at his last appt. Per recommendation of Dr. Lantigua on referral 10/26/23, request is made to improve pt AROM/AAROM. Pt and pt's 's questions were discussed post initial evaluation. Pt was encouraged to listen to what his body is telling him and refrain from pushing into any type of painful ROM.Of note: during therapist PROM assessment, palpable clicks were felt with GENTLE ROM at ~40/50 degrees flexion, pt states he feels these sensations in his arm. Pt was initiated in gentle AAROM table slides for shoulder flexion to GENTLE slow pace, within pain-free ranges. Therapist did not Range into ER this date. Pt was encouraged to try low reps ~3-5 twice daily to improve motion while balancing management of his sx of pain. Pt was educated in ways to position himself to reduce stress on his shoulder during sleep/activity/upright including goal of weaning from use of sling. Pt verbalized carryover post therapy education. Pt did verbalized positive reduction in pain with trial of ice post evaluation assessment this date. Pt will be seen in therapy once weekly to progress/advance gains. THank you for this referral. Frequency and Duration: The patient will be seen 1x/week x 4 weeks Short Term Goals: 1. Initiate self care for symptom management of R UE. 2. AAROM R shoulder flexion to 70. 3. Demonstrate good body mechanics/functional safety use of R UE injury. 4. Reduce pain by 25% during ADLs/IADLS. 5. IMprove SPADI Score by 10%. [employer] Goals: 1. AAROM>AROM R shoulder flexion to 100. 2. Initiate self care/HEP. 3. Pt will improve postural awareness during ADLS/IADLS. 4 I HEP self care management in regard to daily function. 5. Demonstrate improvement in SPADI score by 25%. 6. Periscap strength 5/5 R>L. Treatment Plan: Modalities to reduce pain, spasms and effusion. Manual therapy to restore motion and function. Therapeutic exercise to improve strength and flexibility. Neuromuscular re-education for posture and balance. Therapeutic activities to return to functional activities of daily living. Electronically signed by: Please sign and return to therapist. Thank you for your referral.
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
== END 2024-08-02 09:51 | disposition home or self-care (01) ==
LOC: HO.PTWFD 11:00
PROVIDERS: PCP Physician Assistant Medical; Visit Provider Orthopaedic Surgery
DX: Z98.890 Other specified postprocedural states (principal); Z87.81 Personal history of (healed) traumatic fracture
CPT/HCPCS: 97110; 97140; 97162; 97535

== ENCOUNTER 2024-09-06 12:23 | Outpatient (REF) | payer OTHER, SELFPAY ==
--- NOTE | ~2024-09-06 | XR_ITS ---
EXAMINATION: XR SHOULDER 2 OR MORE VIEWS RIGHT HISTORY: M25.519 - Pain in unspecified shoulder COMPARISON: Comparison is made with the prior examination dated 03/08/2024. FINDINGS: Two views of the right shoulder are submitted. The patient is again noted to be status post internal fixation of a comminuted fracture of the humeral head and neck with a sideplate and multiple orthopedic screws. The fracture line remains visible. Position and appearance of the orthopedic hardware is unchanged. Again seen is lucency surrounding the most superior humeral neck screw. Again seen is partial collapse of the humeral head. The soft tissues are unremarkable. XR/XR shoulder RT min 2V IMPRESSION: Internal fixation of a fracture of the humeral head and neck without significant change. Electronically signed by: Tye Hung MD 09/11/2024 11:13 AM [facility]
== END 2024-09-06 12:24 | disposition home or self-care (01) ==
LOC: HO.HOSX 12:23
PROVIDERS: Visit Provider Orthopaedic Surgery
DX: M25.511 Pain in right shoulder (principal); Z98.890 Other specified postprocedural states; Z87.81 Personal history of (healed) traumatic fracture
CPT/HCPCS: 73030; 99212

== ENCOUNTER 2024-09-06 13:53 | Outpatient (AMB) | payer OTHER, SELFPAY ==
--- NOTE | 2024-09-06 13:55 | MHC.OFFVIS ---
Vital Signs 09/06/24 14:06 Height 5 ft 9 in Weight 245 lb BMI 36.2 Intake Visit Reasons: ov-Rt Humerus ORIF 08/05/23 Intake Note: Haseeb is a 69 year old Right hand dominant male who presents today for a follow up of his right arm S/P Right Humerus ORIF 08/05/2023. On 02/18/24 he was pulled by the arm which caused an increase of pain. Patient reports that his arm is having continued pain and limited ROM that is not improving. He is not taking anything for his pain as anything he had tried taking has not helped. He is back to work but is working very light duty and is still feelinglike it is pushing it. Allergies No Known Allergies Allergy (Verified 03/08/24 11:03) HPI HPI ov-Rt Humerus ORIF 08/05/23: Details: Haseeb is a 69 year old Right hand dominant male who presents today for a follow up of his right arm S/P Right Humerus ORIF 08/05/2023. On 02/18/24 he was pulled by the arm which caused an increase of pain. Patient reports that his arm is having continued pain and limited ROM that is not improving. He is not taking anything for his pain as anything he had tried taking has not helped. He is back to work but is working very light duty and is still feelinglike it is pushing it. [facility] Surgical History H/O total knee replacement Social History Household Members: Spouse Patient Tobacco Use Status: Never used Tobacco Second Hand Smoke Exposure: No Physical Exam Vital Signs: BMI result Body Mass Index 36.2 Extrem Other: ER to 30 deg FF to 70 Abd to 60 Results Reviewed Results Reviewed: I personally reviewed relevant radiographs. There is redemonstration status post ORIF of the right humeral head. There is lucency surrounding and screws which had penetrated the head superiorly. There is osteo necrosis of a portion of the head with fracture line still visible. Assessment & Plan Assessment & Plan (1) Status post open reduction and internal fixation (ORIF) of fracture: Code(s): Z98.890 - Other specified postprocedural states; Z87.81 - Personal history of (healed) traumatic fracture Category: Surgical Plan: This is a 69-year-old gentleman with a failed ORIF of the right shoulder. He continues to be very hesitant to undergo surgery but I do recommend, at the least, removal of hardware. I think this will potentially decrease some of the more severe pain than he has. I did discuss that ultimately he would need a shoulder replacement. Hardware removal is a necessary step but we will do that 1st and see how he does and then discuss treatment options at a later time. I did discuss the risk of worsening pain, infection, stiffness, nerve injury. He expressed understanding and we will proceed forward accordingly. Orders: Orders XR shoulder RT min 2V 09/06/24 M25.519 - Pain in unspecified shoulder Coding Level of Care Code Est Pt Level 4 (25342) Diagnoses Status post open reduction and internal fixation (ORIF) of fracture Z98.890; Z87.81
[2024-09-06 14:06] VITALS: BMI 36.2
== END 2024-09-06 14:46 | disposition home or self-care (01) ==
PROVIDERS: PCP Physician Assistant Medical; Visit Provider Orthopaedic Surgery
DX: Z47.2 Encounter for removal of internal fixation device (principal); S42.221D 2-part displaced fracture of surgical neck of right humerus, subsequent encounter for fracture with routine healing; Z87.81 Personal history of (healed) traumatic fracture
CPT/HCPCS: 99214

== ENCOUNTER → 2024-09-06 13:55 | Outpatient (BNV) | payer OTHER, SELFPAY | PROVIDERS: Visit Provider Radiology Diagnostic Radiology | DX: M25.511 Pain in right shoulder (principal) | CPT/HCPCS: 73030 ==

== ENCOUNTER 2024-10-23 07:42 | Day surgery (SDC) | payer MEDICARE, SELFPAY ==
[2024-10-19 13:04] VITALS: BMI 36.2
--- NOTE | 2024-10-22 09:24 | P.CONAN_ITS ---
Documented by User: Traci Sue NP 10/22/24 09:25 HPI - Anesthesia Eval Consult details Narrative: 69yo M for Right Removal Orthopedic Hardware - screws (Humerus) Anesthesia Pre-Procedure Meds Is the patient on any of the following meds?: GLP1/DPP4 PMFSH Active Problems Active Problems: All Active Problems Status post open reduction and internal fixation (ORIF) of fracture (Acute) Fracture of proximal end of right humerus (Acute) Diabetes (Acute) Past Medical History Medical History Erectile dysfunction Hypertension Diabetes Family History Family history of problems with anesthesia: No Surgical History Surgical History Hx of shoulder surgery Hx of colonoscopy H/O total knee replacement History of Problems with Anesthesia: No Social History Social History Household Members: Spouse Are you a primary customer care coordinator to a significant other at home: No Do you presently have visiting nurse or other home services: No Patient Tobacco Use Status: Never used Tobacco Second Hand Smoke Exposure: No Use of substances other than those prescribed or required for medical reasons: No Have you been hit, kicked, punched, or otherwise hurt by someone within the past year? If so, by whom?: No Are you DNR?: No Advance Directives: No Advance Directives Information Provided: Yes Recently lost weight without trying: No Nutrition Risks: No Nutritional Risk Meds Allergies Allergy/AdvReac Type Severity Reaction Status Date / Time No Known Allergies Allergy Verified 10/23/24 09:54 Home Medications ?Medication ?Instructions ?Recorded ?Confirmed ?Last Taken ?Type blood sugar diagnostic (FreeStyle #10 ea 08/03/23 10/23/24 Unknown History Lite Strips) diclofenac sodium 75 mg 75 mg PO BID 08/03/23 10/23/24 Unknown History tablet,delayed release empagliflozin 10 mg tablet 10 mg PO DAILY 08/03/23 10/23/24 10/19/24 History (Jardiance) folic acid 1 mg tablet 1 mg PO DAILY 08/03/23 10/23/24 Unknown History glipizide 10 mg tablet, extended 10 mg PO DAILY 08/03/23 10/23/24 Unknown History release 24 hr insulin glargine 100 unit/mL (3 unit subcut 08/03/23 08/03/23 Unknown History mL) subcutaneous pen (Lantus Solostar U-100 Insulin) lisinopril 40 mg tablet 40 mg PO DAILY 08/03/23 10/23/24 Unknown History metformin 500 mg 24 hr mg PO 08/03/23 08/03/23 Unknown History tablet,extended release (gastric retention) omeprazole 20 mg capsule,delayed 20 mg PO DAILY 08/03/23 10/23/24 10/23/24 History release sildenafil 100 mg tablet 100 mg PO DAILY 08/03/23 10/23/24 Unknown History Exam Height,Weight and Vital Signs: Height 5 ft 9 in Weight 111.13 kg Assessment and Plan Assessment Anesthesia Assessment: Chart Reviewed Final Anesthetic Review Family History of Problems with Anesthesia: No History of Problems with Anesthesia: No Documented by User: Domitila Tolentino MD 10/23/24 10:46 HPI - Anesthesia Eval Anesthesia Pre-Procedure Meds If yes to any meds - educate patient: Pt education - increased risk of aspiration and/or euvolemic DKA PMFSH Past Medical History Medical History Erectile dysfunction Hypertension Diabetes Surgical History Surgical History Hx of shoulder surgery Hx of colonoscopy H/O total knee replacement Social History Social History Household Members: Spouse Are you a primary customer care coordinator to a significant other at home: No Do you presently have visiting nurse or other home services: No Patient Tobacco Use Status: Never used Tobacco Second Hand Smoke Exposure: No Use of substances other than those prescribed or required for medical reasons: No Have you been hit, kicked, punched, or otherwise hurt by someone within the past year? If so, by whom?: No Are you DNR?: No Advance Directives: No Advance Directives Information Provided: Yes Recently lost weight without trying: No Nutrition Risks: No Nutritional Risk Meds Allergies Allergy/AdvReac Type Severity Reaction Status Date / Time No Known Allergies Allergy Verified 10/23/24 09:54 Home Medications ?Medication ?Instructions ?Recorded ?Confirmed ?Last Taken ?Type blood sugar diagnostic (FreeStyle #10 ea 08/03/23 10/23/24 Unknown History Lite Strips) diclofenac sodium 75 mg 75 mg PO BID 08/03/23 10/23/24 Unknown History tablet,delayed release empagliflozin 10 mg tablet 10 mg PO DAILY 08/03/23 10/23/24 10/19/24 History (Jardiance) folic acid 1 mg tablet 1 mg PO DAILY 08/03/23 10/23/24 Unknown History glipizide 10 mg tablet, extended 10 mg PO DAILY 08/03/23 10/23/24 Unknown History release 24 hr insulin glargine 100 unit/mL (3 unit subcut 08/03/23 08/03/23 Unknown History mL) subcutaneous pen (Lantus Solostar U-100 Insulin) lisinopril 40 mg tablet 40 mg PO DAILY 08/03/23 10/23/24 Unknown History metformin 500 mg 24 hr mg PO 08/03/23 08/03/23 Unknown History tablet,extended release (gastric retention) omeprazole 20 mg capsule,delayed 20 mg PO DAILY 08/03/23 10/23/24 10/23/24 History release sildenafil 100 mg tablet 100 mg PO DAILY 08/03/23 10/23/24 Unknown History Exam Airway Mallampati Class: III TM Dist: >3cm Neck ROM: Limited Heart: rrr Lungs: cta Assessment and Plan Assessment Anesthesia Assessment: Anesthesia Plan Discussed Final Anesthetic Review NPO: Yes ASA Class: III Final Preanesthetic Review: No Changes in Pt Med Stat, Meds/Allgs Chart Reviewed, Consent Obtained/Reviewed and Anes Risks/Benef Reviewed Patient Risk: Intermediate Procedure Risk: Intermediate Anesthetic Plan Anesthetic Plan: GA Disposition: Standard PACU
--- NOTE | ~2024-10-23 | FL_ITS ---
EXAMINATION: FL GUIDANCE ONLY HISTORY: REMOVAL HARDWARE HUMERUS RIGHT COMPARISON: Correlation is made to plain films of the right shoulder dated 09/06/2024. TECHNIQUE: Fluoroscopy time: Less than 1 minute. Cumulative Dose: 0.797 mGy. DAP: 0.0138 mGym2 Images: 1. FINDINGS: Images demonstrate removal of the previously seen fixation hardware in the proximal right humerus. A displaced oblique fracture is again noted. FL/FL guidance in OR IMPRESSION: Fluoroscopy during procedure. Please see procedure report for additional information. Electronically signed by: Tye Hung MD 10/23/2024 02:51 PM [facility]
[2024-10-23] MEDS: Lactated Ringers 1,000 ML 100 ML IVCONT (09:37)
[2024-10-23 09:51] VITALS: BP 157/82; PULSE 81; RESP 18; TEMP 36.8; O2SAT 96
[2024-10-23 09:53] LABS: Glucose, Whole Blood 249 mg/dL (60-115)
[2024-10-23 09:58] VITALS: BMI 36.8
--- NOTE | 2024-10-23 10:06 | MHC.SHP ---
Pre-Procedural Eval Section A - 24 Hr Update-Section A only Date of Service: 10/23/24 The patient is an INPATIENT: No Changes since office visit: No Cold of Flu in the past 2 weeks, No New Medical Problems, No Changes in Medication and No Patient answered all questions The patient has been examined within 24 hours of the surgical procedure. The History & Physical has been completed within 30 days and I have reviewed it.: Yes Section B - Complete if H&P > 30 days Chief Complaint: Personal history of (healed) traumatic fracture Allergies: Allergies Allergy/AdvReac Type Severity Reaction Status Date / Time No Known Allergies Allergy Verified 10/23/24 09:54 Plan I have reviewed the history and physical and performed a pertinent physical examination on my patient. No changes have occurred unless specified. Time Spent With Patient Time: Total time managing care of this patient today ____ minutes.
[2024-10-23] MEDS: Insulin Lispro 100 UNIT/ML 3 ML VIAL SUBCUT (10:53)
[2024-10-23 11:37] LABS: Glucose, Whole Blood 256 mg/dL (60-115)
[2024-10-23 13:34] VITALS: BP 151/87; PULSE 70; RESP 16; TEMP 36.2; O2SAT 95
[2024-10-23 13:39] VITALS: BP 139/75; PULSE 71; RESP 16; O2SAT 93
[2024-10-23 13:44] VITALS: BP 126/77; PULSE 74; RESP 16; O2SAT 93
[2024-10-23 13:49] VITALS: BP 130/80; PULSE 74; RESP 16; O2SAT 95
[2024-10-23 14:10] VITALS: BP 139/68; PULSE 73; RESP 16; TEMP 36.2; O2SAT 94
--- NOTE | 2024-10-23 14:26 | P.BOP_ITS ---
Brief Operative Note Date of Service: 10/23/24 Pre-op diagnosis: Retained Orthopedic Hardware Right Shoulder Post-op diagnosis: same Procedure: Removal of hardware, deep, right shoulder Surgeon: Matteo Lantigua MD Anesthesia: GETA and regional Was an Junior Accountant Bookkeeper used for this Procedure?: Yes Junior Accountant Bookkeeper: Sebastian Min Estimated blood loss (mL): 100 IV fluids (mL): 750 Pathology: none sent Condition: stable Disposition: PACU
--- NOTE | 2024-10-26 13:19 | P.OP_ITS ---
Operative Note Operative Note Date of Service: 10/23/24 Narrative: Date of Service: 10/23/24 Pre-op diagnosis: Retained Orthopedic Hardware Right Shoulder Post-op diagnosis: same Procedure: Removal of hardware, deep, right shoulder Surgeon: Matteo Lantigua MD Anesthesia: GETA and regional Was an Stroke Belt Sander Operator used for this Procedure?: Yes Stroke Belt Sander Operator: Sebastian Min Estimated blood loss (mL): 100 IV fluids (mL): 750 Pathology: none sent Condition: stable Disposition: PACU Procedure in detail: Patient was brought to the operating room and placed in the beach chair position on the surgical table. He was prepped and draped in standard sterile fashion and a time out was called to identify proper site, proper procedure and IV antibiotics per weight were administered. I began by making an incision over the previous deltopectoral incision. Full thickness flaps were taken down to the plate and a periosteal elevator was used to remove soft tissue from the plate. 10 screws and the plate were then removed without difficulty. The screw holes and extraneous bone were debrided with a currette and rongeur. I then irrigated and performed a layered closure with absorbable suture and skin glue. The patient was placed in sterile dressings, extubated and brought to the recovery room in stable condition.
== END 2024-10-23 14:42 | disposition home or self-care (01) ==
PROVIDERS: Visit Provider Orthopaedic Surgery
PROC: (CPT 20680; principal; 2024-10-23 11:50)
DX: T84.84XA Pain due to internal orthopedic prosthetic devices, implants and grafts, initial encounter (principal); X50.9XXA Other and unspecified overexertion or strenuous movements or postures, initial encounter; Y93.9 Activity, unspecified; Y92.9 Unspecified place or not applicable; Y99.9 Unspecified external cause status; Y79.2 Prosthetic and other implants, materials and accessory orthopedic devices associated with adverse incidents; M79.621 Pain in right upper arm; M25.611 Stiffness of right shoulder, not elsewhere classified; Z87.81 Personal history of (healed) traumatic fracture; I10 Essential (primary) hypertension; E11.9 Type 2 diabetes mellitus without complications; Z79.4 Long term (current) use of insulin; Z79.84 Long term (current) use of oral hypoglycemic drugs; Z79.899 Other long term (current) drug therapy; Z98.890 Other specified postprocedural states; Z96.653 Presence of artificial knee joint, bilateral
CPT/HCPCS: 20680; 82947; J0131; J0665; J0690; J1100; J2003; J2250; J2371; J2405; J2704; J2795; J3010

== ENCOUNTER → 2024-10-23 07:42 | Outpatient (BNV) | payer MEDICARE, SELFPAY | PROVIDERS: Visit Provider Orthopaedic Surgery | DX: Z47.2 Encounter for removal of internal fixation device (principal) | CPT/HCPCS: 20680 ==

== ENCOUNTER 2024-11-01 12:40 | Outpatient (REF) | payer MEDICARE, SELFPAY ==
--- NOTE | ~2024-11-01 | XR_ITS ---
EXAMINATION: XR SHOULDER, RIGHT CLINICAL INFORMATION: M25.511 - Pain in right shoulder COMPARISON: Right shoulder 09/06/2024 TECHNIQUE: Two views of the right shoulder. FINDINGS: Orthopedic hardware along the lateral proximal humeral neck has been removed. There is unhealed oblique fracture through the right proximal humerus and the neck. The right glenohumeral joint space is normal. Postsurgical taqueria are seen along the right upper extremity.. XR/XR shoulder RT min 2V IMPRESSION: Right proximal hardware has been removed. There is a unhealed oblique fracture through the proximal and neck of right humerus. Electronically signed by: Homero Lopez MD 11/05/2024 11:34 AM EDT
--- OUTSIDE RECORDS SUMMARY | 2024-11-01 15:18 | XMS_ITS | Clinical Summary ---
Author Organization [address] [facility] Address [address] [place] [address] Phone Care Team Providers Care Beauty Director Name Role Phone Favian Reynoso Primary Care Provider [phone] Allergies Active Allergy Reactions Criticality Noted Date Comments Iodinated Contrast Media Hives 07/04/2007 HIVES, SOB Oxycodone-Acetaminophen 11/23/2005 respiratory problems Shellfish Derived Rash Medium 02/09/2008 Medications cholecalcifero l (VITAMIN D-3) 25 mcg (1,000 unit) tablet Take by mouth. Activ e acetaminophen (TYLENOL) 500 mg capsule Take 1,000 mg by mouth. Active ascorbic acid (VITAMIN C) 500 mg tablet Take 500 mg by mouth. Active blood-glucose meter kit As directed 5 Active UNABLE TO FIND CPAP Historical (HISTORICAL CPAP) Active empagliflozin (Jardiance) 10 mg tablet Take 1 tablet (10 mg total) by mouth 1 (one) time each day. 4 Active FREESTYLE LANCETS MISC Use to test blood glucose bid 0 Active glipiZIDE (GLUCOTROL XL) 10 mg 24 hr tablet Take 1 tablet (10 mg total) by mouth 1 (one) time each day. 4 Active blood sugar diagnostic (FreeStyle Lite Strips) test strip USE TO TEST BLOOD SUGAR ONCE DAILY 3 Active insulin glargine (Lantus Solostar U-100 Insulin) 100 unit/mL (3 mL) injection pen INJECT 40 UNITS OF INSULIN SUBCUTANEOUSLY AT BEDTIME. 4 Active lisinopril (PRINIVIL,ZEST RIL) 40 mg tablet Take 1 tablet (40 mg total) by mouth 1 (one) time each day. 4 Active omeprazole (PriLOSEC) [address] capsule Take 1 capsule (20 mg total) by mouth 1 (one) time each day. 4 Active BD Erin 2nd Gen Pen Needle 32 gauge x needle USE TO INJECT INSULIN INTO THE SKIN ONCE DAILY 100 each 1 5 Active diclofenac (VOLTAREN) 75 mg EC tablet TAKE 1 TABLET BY MOUTH TWICE A DAY 180 tablet 1 5 Active Active Problems Problem Noted Date Diagnosed Date Fatty liver 05/01/2020 Anxiety 04/08/2020 Diabetes mellitus with renal manifestation 01/28 Mixed hyperlipidemia 03/05/2014 Incisional hernia 10/15/2013 Overview (05/31/2024): No surgery as of 2013 Type 2 diabetes mellitus wit h neurological manifestations, controlled 08/16/2011 Overview (05/31/2024): CTS Obesity, unspecified 07/12/2011 Obstructive sleep apnea 10/09/2008 Overview (05/31/2024): Uses cpap Regularly [facility] Split Night Polysomnogram Date 10/01/2008 wt 240 #; BMI 34. Without PAP: SE 34 % SM 34 %; REM 0 % of this phase. RDI 104; Central apneas 0; Obstructive apneas 28; Mixed apneas 0; hypopneas 112; average oxygen saturation 93 % (lowest 74 %); PLMs 97. With PAP: SE 58 % SM 59 %; REM 20 % of this phase. On CPAP @13; AHI 8, Central apneas 0; Obstructive apneas 0; Mixed apneas 0; hypopneas 14; and, average oxygen saturation was 90 %; PLMs ~6. - Obstructive Sleep Apnea - severe; mostly hypopneas with obstructive apneas by 2008 split night polysomnogram. Benign essential hypertension 12/12/2007 Diverticulitis of colon without hemorrhage 06/19 Overview (05/31/2024): Incidental finding at colonoscopy 06/19/2007. Esophageal reflux 05/05/2007 Overview (05/31/2024): Negative EGD on PPI rx 06/19/2007 Carpal tunnel syndrome 01/05/2006 Overview (05/31/2024): R CTR 06/01 surgery done Osteoarthrosis, forearm 01/05/2006 Overview (05/31/2024): IMO update Osteoarthrosis, hand 01/05/2006 Overview (05/31/2024): IMO update Encounters Date Type Department Care Team Description 09/13/2024 10:30 AM EST Office Visit Orthopedic Surgery - [address] [id number] Rony Bajwa, LEORAM Diabetic mononeuropathy simplex (CMS/HCC) (Primary Dx); Dermatophytosis of nail; Ingrowing nail; Pain in toe of right foot; Pain in toe of left foot from Last 3 Months Immunizations Name Administration Dates Next Due Pneumococcal polysaccharide 23 valent (Pneumovax 23) 2yo and older 06/11/2013 Td Tetanus diptheria (Tdvax) 7yo and older 10/13 Td, Unspecified 10/15/2004 Surgical History Surgery Date Site/Laterality Comments CARPAL TUNNEL RELEASE PROCEDURE: ND NEUROPLASTY &/TRANSPOS MEDIAN NRV CARPAL TUNNE; COMMENT: done on rt hand OTHER SURGICAL HISTORY PROCEDURE: HISTORY OTHER; COMMENT: benign gastric tumor UPPER GASTROINTESTINAL ENDOSCOPY 06/19/2007 PROCEDURE: ND UPPER GI ENDOSCOPY PERFORMED; COMMENT: gastric lesion COLONOSCOPY 06/19/2007 PROCEDURE: HISTORICAL COLONOSCOPY; COMMENT: diverticulosis COLONOSCOPY 12/22/2018 PROCEDURE: HISTORICAL COLONOSCOPY; COMMENT: diverticulosis; no polyps. TOTAL KNEE ARTHROPLASTY 2018 Bilateral PROCEDURE: ND ARTHRP KNE CONDYLE&PLATU MEDIAL&LAT COMPARTMENTS; COMMENT: Both done at the same time at [facility] SHOULDER SURGERY 08/05/2023 PROCEDURE: HISTORICAL SHOULDER SURGERY; COMMENT: ORIF right proximal humerus fx - dr. dorsey Medical History Medical History Date Comments Carpal tunnel syndrome 01/05/2006 DX:Carpal tunnel syndrome; COMMENT: R CTR 06/01 Esophageal reflux DX:Esophageal reflux Osteoarthrosis, unspecified whether generalized or localized, hand 01/05/2006 DX:Osteoarthrosis, unsp ecified whether generalized or localized, hand Osteoarthrosis, unspecified whether generalized or localized, forearm 01/05/2006 DX:Osteoarthrosis, u nspecified whether generalized or localized, forearm Diverticulosis of colon (wit hout mention of hemorrhage) 06/19/2007 DX:Diverticulosis of colon ( without mention of hemorrhage); COMMENT: Incidental finding at colonoscopy 06/19/2007. Special screening for malign ant neoplasms, colon 05/05/2007 DX:Special screening for mal ignant neoplasms, colon; COMMENT: Negative colonoscopy 06/19/2007, no colon cancer screening needed for 10 years. Impaired fasting glucose 08/02/2011 DX:Impa ired fasting glucose Incisional hernia 10/15/2013 DX:Incisional hernia; COMMENT: No surgery as of 2013 Family History Medical History Relation Name Comments Arthritis Mother Other Dermatological Disorders Mother Precancerous spots Relation Name Status Comments Brother Alive htn Father (Age 86) htn, dm II Mother Alive Sister Alive htn stroke etoh Social History Tobacco Use Types Packs/Day Years Used Date Smoking Tobacco: Former Cigarettes 1 28.5 0 02/13/1971 - 08/29/1999 Smokeless Tobacco: Never Alcohol Use Standard Drinks/Week Comments Yes 0 (1 standard drink = 0.6 oz pur e alcohol) Sex and Gender Information Value Date Recorded Sex Assigned at Not on file Legal Sex Male 5:19 PM EST Gender Identity Not on file Sexual Orientation Not on file Obstetrics History Last Filed Vital Signs Vital Sign Reading Time Taken Comments Blood Pressure 114/72 06/14/2024 12:58 PM EDT Pulse 70 06/14/2024 12:58 PM EDT Temperature - - Respiratory Rate - - Oxygen Saturation - - Inhaled Oxygen Concentration - - Weight 117 kg (257 lb) 09/13/2024 10:27 AM EST Height 172.7 cm (5' 7.99 ) 09/13/2024 10:[address] Body Mass Index 39.09 09/13/2024 10:27 AM EST Plan of Treatment Upcoming Encounters Date Type Department Care Team (Late st Contact Info) Description 12/12/2024 10:30 AM EDT Office Visit Orthopedic Surgery [facility] [address] [phone] Rony Bajwa, DPM [address] [address] Health Maintenance Due Date Last Done Comments Zoster Vaccines (1 of 2) 2006 Pneumococcal Vaccine: 50+ Years (2 of 2 - PCV) 06/11/2014 06/11/2013 RSV Immunization Patients 60+ Years Old (1 - Risk 60-74 years 1-dose series) 2016 Falls Risk Assessment 08/07/2022 Medicare Annual Wellness Visit 08/07/2022 Social Influencers of Health Screening 08/07/2022 COVID-19 Vaccine ( season) 2024 Influenza Vaccine (#1) 2024 Diabetes: Annual Retina Eye Exam 08/01/2024 08/01/2023 Diabetes: Blood Sugar Control Test (HGBA1C) 12/11/2024 06/12/2024, 02/10/2024, 02/10/2024 Diabetes: Annual Urine Albumin-Creatinine Ratio (uACR) 02/09/2025 02/10/2024 Diabetes: Annual Foot Exam 02/26/2025 02/27/2024 Depression Screening 05/15/2025 05/15/2024 Diabetes: Annual GFR (Glomerular Filtration Rate) 06/12/2025 06/12/2024, 02/10/2024, 02/10/2024 Hypertension/CHF/CAD Annual BMP Blood Test 06/12/2025 06/12/2024, 02/10/2024, 02/10/2024 Colorectal Cancer Screening: Colonoscopy 12/22/2028 12/22/2018 Cholesterol Screening (Lipid Panel) 06/12/2029 06/12/2024, 02/10/2024, 02/10/2024 DTaP,Tdap,and Td Vaccines (5 - Td or Tdap) 07/23/2033 07/23/2023, 12/07/2012, 10/13/2012, Additional history exists Abdominal Aortic Aneurysm (AAA) Screen Completed 09/09/2011 Hepatitis C Screening Completed 03/04/2014 HIB Vaccines Aged Out No longer eligi ble based on patient's age to complete this topic HPV Vaccines Aged Out No longer eligi ble based on patient's age to complete this topic Hepatitis A Vaccines Aged Out No long er eligible based on patient's age to complete this topic Hepatitis B Vaccines Aged Out No long er eligible based on patient's age to complete this topic IPV Vaccines Aged Out No longer eligi ble based on patient's age to complete this topic MMR Vaccines Aged Out No longer eligi ble based on patient's age to complete this topic Meningococcal ACWY Vaccine Aged Out N o longer eligible based on patient's age to complete this topic Meningococcal B Vacine Aged Out No lo nger eligible based on patient's age to complete this topic RSV Immunization Patients Under 20 months Aged Out No longer eligible based on patient's age to complete this topic Varicella Vaccines Aged Out No longer eligible based on patient's age to complete this topic Procedures Procedure Name Priority Date/Time Associated Diagnosis Comments DEPRESSION SCREENING Routine 05/15/2024 DIABETES FOOT EXAM Routine 02/27/2024 URINE ALBUMIN CREATININE RATIO Routine 02/10/2024 ANNUAL BMP BLOOD TEST Routine 02/10/2024 HEMOGLOBIN A1C Routine 02/10/2024 LIPID PANEL Routine 02/10/2024 DIABETES EYE EXAM Routine 08/01/2023 COLONOSCOPY Routine 12/22/2018 HEPATITIS C SCREENING Routine 03/04/2014 ABDOMINAL AORTIC ANEURYSM SCRREN Routine 09/09/2011 from Last 3 Months or Most Recently Relevant to Health Maintenance Results * Depression Screening (05/15/2024) Pathologist [facility] Depression Screening abstracted us Historical Provider MD HEALTH MAINTENANCE Final Result * Diabetes Foot Exam (02/27/2024) Pathologist [facility] Diabetes: Annual Foot Exam abstracted Result [facility] HEALTH MAINTENANCE Final Result * Urine Albumin Creatinine Ratio (02/10/2024) [facility] Urine Albumin Creatinine Ratio abstracted Result [facility] HEALTH MAINTENANCE Final Result * Annual BMP Blood Test (02/10/2024) [facility] Annual BMP Blood Test abstracted Result [facility] HEALTH MAINTENANCE Final Result * (ABNORMAL) Hemoglobin A1c (02/10/2024) [facility] Hemoglobin A1C 8.3(A) <=6.5 % Blood Venous blood specimen / Unknown Result [facility] LAB BLOOD ORDERABLES Noreen l Result * (ABNORMAL) Lipid panel (02/10/2024) [facility] LDL/HDL Ratio 5(A) 0 - 4 Triglycerides 219(A) 0 - 150 mg/dL Cholesterol 241(A) 0 - 200 mg/dL HDL 53 >=40 mg/dL LDL Cholesterol 145(A) 0 - 100 mg/dL Blood Venous blood specimen / Unknown Result [facility] LAB BLOOD ORDERABLES Noreen l Result * Diabetes Eye Exam (08/01/2023) [facility] Diabetes: Annual Retina Eye Exam abstracted Result [facility] HEALTH MAINTENANCE Final Result * Colonoscopy (12/22/2018) [facility] Colonoscopy no interpretation , abstracted Anatomical Region Laterality Modality Other Result [facility] HEALTH MAINTENANCE Final Result * Hepatitis C Screening (03/04/2014) [facility] Hepatitis C Screening abstracted Result [facility] HEALTH MAINTENANCE Final Result * Abdominal Aortic Aneurysm Screen (09/09/2011) [facility] Abdominal Aortic Aneurysm (AAA) Screening abstracted Anatomical Region Laterality Modality Other us Historical Provider HEALTH MAINTENANCE Final Result from Last 3 Months or Most Recently Relevant to Health Maintenance Insurance MEDICARE Care Teams Beauty Director Relationship Specialty Start Date End Date Favian Reynoso PA [address] [place] [address] PCP - General Internal Medicine 01/21/21
== END 2024-11-01 12:41 | disposition home or self-care (01) ==
LOC: HO.HOSX 12:40
PROVIDERS: Visit Provider Physician Assistant
DX: S42.201D Unspecified fracture of upper end of right humerus, subsequent encounter for fracture with routine healing (principal); Z98.890 Other specified postprocedural states; Z87.81 Personal history of (healed) traumatic fracture
CPT/HCPCS: 73030; 99212

== ENCOUNTER 2024-11-01 13:43 | Outpatient (AMB) | payer MEDICARE, SELFPAY ==
--- NOTE | 2024-11-01 13:51 | MHC.OFFVIS ---
Intake Visit Reasons: PO RT humerus MARYLIN 10/23/24 NE Intake Note: Haseeb is a 69 year old male who presents today for a post operative RT humerus MARYLIN, DOS 10/23/24 NE. X-rays updated. Patient reports he is doing well, states pain has improved since his surgery. He has no concerns today. Allergies No Known Allergies Allergy (Verified 11/01/24 13:55) Medication List - Last Reconciled 11/01/24 by Sebastian Min PA-C acetaminophen 650 mg (2 x 325 mg) PO Q6H PRN 30 days blood sugar diagnostic (FreeStyle Lite Strips) As directed diclofenac sodium 75 mg PO BID empagliflozin (Jardiance) 10 mg PO DAILY glipizide ER 10 mg PO DAILY insulin glargine (Lantus Solostar U-100 Insulin) units subcut lisinopril 40 mg PO DAILY metformin ER mg PO omeprazole 20 mg PO DAILY sildenafil 100 mg PO DAILY HPI HPI PO RT humerus MARYLIN 10/23/24 NE: Details: 69-year-old gentleman returns to the office today status post removal of hardware right proximal humerus fracture 10/23/[address] Lantigua. He states since the hardware has been removed he does have less pain and feels as though when he moves his arm there is nothing getting caught up on the soft tissues. He states on Tuesday he took a sledgehammer and was reshaping metal while at work which did irritate the shoulder. No other concerns today. [facility] Medical History Erectile dysfunction Hypertension Diabetes Surgical History Hx of shoulder surgery Hx of colonoscopy H/O total knee replacement Social History Household Members: Spouse Are you a primary healthcare consulting manager to a significant other at home: No Do you presently have visiting nurse or other home services: No Patient Tobacco Use Status: Never used Tobacco Second Hand Smoke Exposure: No Review of Systems Const All systems reviewed & are unremarkable except as noted in HPI and below Physical Exam Extrem Other: Right shoulder incision clean dry and intact. No erythema no drainage. Neurovascularly intact. Results Reviewed Results Reviewed: X-rays of the right shoulder obtained in the office today show of hardware with proximal humerus fracture interval healing. No change from previous studies intra op Assessment & Plan Assessment & Plan (1) Status post open reduction and internal fixation (ORIF) of fracture: Code(s): Z98.890 - Other specified postprocedural states; Z87.81 - Personal history of (healed) traumatic fracture Category: Surgical (2) Fracture of proximal end of right humerus: Code(s): S42.201A - Unspecified fracture of upper end of right humerus, initial encounter for closed fracture Category: Medical Qualifiers: Encounter type: initial encounter Fracture morphology: unspecified fracture morphology Fracture type: closed Qualified Code(s): S42.201A - Unspecified fracture of upper end of right humerus, initial encounter for closed fracture Plan [place] removed today Steri-Strips applied. I advised against no excessive pushing pulling or carrying with the right upper extremity for the next 4-6 weeks. Performing activities between waist and shoulder height should be appropriate for him. He will work on some home exercises to maintain his motion and see us back in 6 weeks with x-rays sooner if needed. Orders: Orders XR shoulder RT min 2V Today M25.511 - Pain in right shoulder Coding Level of Care Code Global (00786) Diagnoses Status post open reduction and internal fixation (ORIF) of fracture Z98.890; Z87.81 Closed fracture of proximal end of right humerus, unspecified fracture morphology, initial encounter S42.201A Encounter type: initial encounter Fracture morphology: unspecified fracture morphology Fracture type: closed
--- OUTSIDE RECORDS SUMMARY | 2024-11-01 16:40 | XMS_ITS | Clinical Summary ---
Author Organization [address] [facility] Address [address] [place] [address] Phone Care Team Providers Care Drawing Kiln Operator Name Role Phone Favian Reynoso Primary Care Provider [phone] Allergies Active Allergy Reactions Criticality Noted Date [...] apnea 10/09/2008 Overview (05/31/2024): Uses cpap Regularly [facility] Split Night Polysomnogram Date 10/01/2008 wt 240 [...] AM EST Office Visit Orthopedic Surgery - [address] [phone] oRny Bajwa, LEORAM Diabetic mononeuropathy simplex (CMS/HCC) (Primary [...] Date Site/Laterality Comments CARPAL TUNNEL RELEASE PROCEDURE: [place] NEUROPLASTY &/TRANSPOS MEDIAN NRV CARPAL TUNNE; COMMENT: done on rt hand OTHER SURGICAL HISTORY PROCEDURE: HISTORY OTHER; COMMENT: benign gastric tumor UPPER GASTROINTESTINAL ENDOSCOPY 06/19/2007 PROCEDURE: [place] UPPER GI ENDOSCOPY PERFORMED; COMMENT: gastric lesion COLONOSCOPY 06/19/2007 PROCEDURE: HISTORICAL COLONOSCOPY; COMMENT: diverticulosis COLONOSCOPY 12/22/2018 PROCEDURE: HISTORICAL COLONOSCOPY; COMMENT: diverticulosis; no polyps. TOTAL KNEE ARTHROPLASTY 2018 Bilateral PROCEDURE: [place] ARTHRP KNE CONDYLE&PLATU MEDIAL&LAT COMPARTMENTS; COMMENT: Both done at the same time at [facility] SHOULDER SURGERY 08/05/2023 PROCEDURE: HISTORICAL SHOULDER SURGERY; [...] 10:30 AM EDT Office Visit Orthopedic Surgery [facility] [address] [phone] Rony Bajwa, DPM [address] [address] Health Maintenance Due Date Last Done Comments [...] Maintenance Results * Depression Screening (05/15/2024) Pathologist [facility] Depression Screening abstracted us Historical Provider MD HEALTH MAINTENANCE Final Result * Diabetes Foot Exam (02/27/2024) Pathologist [facility] Diabetes: Annual Foot Exam abstracted Result [facility] HEALTH MAINTENANCE Final Result * Urine Albumin Creatinine Ratio (02/10/2024) [facility] Urine Albumin Creatinine Ratio abstracted Result [facility] HEALTH MAINTENANCE Final Result * Annual BMP Blood Test (02/10/2024) [facility] Annual BMP Blood Test abstracted Result [facility] HEALTH MAINTENANCE Final Result * (ABNORMAL) Hemoglobin A1c (02/10/2024) [facility] Hemoglobin A1C 8.3(A) <=6.5 % Blood Venous blood specimen / Unknown Result [facility] LAB BLOOD ORDERABLES Noreen l Result * (ABNORMAL) Lipid panel (02/10/2024) [facility] LDL/HDL Ratio 5(A) 0 - 4 Triglycerides 219(A) 0 - 150 mg/dL Cholesterol 241(A) 0 - 200 mg/dL HDL 53 >=40 mg/dL LDL Cholesterol 145(A) 0 - 100 mg/dL Blood Venous blood specimen / Unknown Result [facility] LAB BLOOD ORDERABLES Noreen l Result * Diabetes Eye Exam (08/01/2023) [facility] Diabetes: Annual Retina Eye Exam abstracted Result [facility] HEALTH MAINTENANCE Final Result * Colonoscopy (12/22/2018) [facility] Colonoscopy no interpretation , abstracted Anatomical Region Laterality Modality Other Result [facility] HEALTH MAINTENANCE Final Result * Hepatitis C Screening (03/04/2014) [facility] Hepatitis C Screening abstracted Result [facility] HEALTH MAINTENANCE Final Result * Abdominal Aortic Aneurysm Screen (09/09/2011) [facility] Abdominal Aortic Aneurysm (AAA) Screening abstracted Anatomical Region Laterality Modality Other us Historical Provider HEALTH MAINTENANCE Final Result from Last 3 Months or Most Recently Relevant to Health Maintenance Insurance MEDICARE Care Teams Drawing Kiln Operator Relationship Specialty Start Date End Date Favian Reynoso PA [address] [place] [address] PCP - General Internal Medicine 01/21/21
== END 2024-11-01 14:29 | disposition home or self-care (01) ==
LOC: HO.HOS 13:43
PROVIDERS: Visit Provider Physician Assistant
DX: Z98.890 Other specified postprocedural states (principal); Z87.81 Personal history of (healed) traumatic fracture; S42.201A Unspecified fracture of upper end of right humerus, initial encounter for closed fracture
CPT/HCPCS: 99024

== ENCOUNTER → 2024-11-01 13:44 | Outpatient (BNV) | payer MEDICARE, SELFPAY | PROVIDERS: Visit Provider Radiology Diagnostic Radiology | DX: S42.201A Unspecified fracture of upper end of right humerus, initial encounter for closed fracture (principal) | CPT/HCPCS: 73030 ==

== ENCOUNTER 2024-12-13 08:42 | Outpatient (REF) | payer MEDICARE, SELFPAY ==
--- NOTE | ~2024-12-13 | XR_ITS ---
CLINICAL HISTORY: S42.301A - Unspecified fracture of shaft of humerus, right arm, initial ... 2 view right humerus Comparison: None Findings: There is a proximal humeral fracture with angulation of the fragments. There is radiolucency, possibly iatrogenic, in the distal fragment. No significant arthritic change. No radiopaque foreign body. IMPRESSION: 1. Proximal humeral fracture. This document has been electronically signed by: Madhu Sandra MD on 12/15/2024 08:51:59
--- OUTSIDE RECORDS SUMMARY | 2024-12-13 09:18 | XMS_ITS | Clinical Summary ---
Author Organization 175 [facility] Address [address] [place] [address] Phone Care Team Providers Care Game Attendant Name Role Phone Favian Reynoso Primary Care Provider [phone] Allergies Active Allergy Reactions Criticality Noted Date Comments Iodinated Contrast Media Hives 07/04/2007 HIVES, SOB Oxycodone-Acetaminophen 11/23/2005 respiratory problems Shellfish Derived Rash Medium 02/09/2008 Medications cholecalcifer ol (VITAMIN D-3) 25 mcg (1,000 unit) tablet Take by mouth. Activ e acetaminophen (TYLENOL) 500 mg capsule Take 1,000 mg by mouth. Active ascorbic acid (VITAMIN C) 500 mg tablet Take 500 mg by mouth. Active blood-glucose meter kit As directed 01/24/20 15 Active UNABLE TO FIND CPAP Historical (HISTORICAL CPAP) Active FREESTYLE LANCETS MISC Use to test blood glucose bid 01/11/20 20 Active glipiZIDE (GLUCOTROL XL) 10 mg 24 hr tablet Take 1 tablet (10 mg total) by mouth 1 (one) time each day. 02/24/20 24 Active blood sugar diagnostic (FreeStyle Lite Strips) test strip USE TO TEST BLOOD SUGAR ONCE DAILY 02/03/20 23 Active insulin glargine (Lantus Solostar U-100 Insulin) 100 unit/mL (3 mL) injection pen INJECT 40 UNITS OF INSULIN SUBCUTANEOUSLY AT BEDTIME. 02/10/20 24 Active lisinopril (PRINIVIL,ZES TRIL) 40 mg tablet Take 1 tablet (40 mg total) by mouth 1 (one) time each day. 02/24/20 24 Active omeprazole (PriLOSEC) [address] capsule Take 1 capsule (20 mg total) by mouth 1 (one) time each day. 02/24/20 24 Active BD Erin 2nd Gen Pen Needle 32 gauge x 5/32 needle USE TO INJECT INSULIN INTO THE SKIN ONCE DAILY 100 each 1 09/07/19 25 Active diclofenac (VOLTAREN) 75 mg EC tablet TAKE 1 TABLET BY MOUTH TWICE A DAY 180 tablet 1 10/02/19 25 Active Jardiance 10 mg tablet TAKE 1 TABLET BY MOUTH EVERY DAY 90 tablet 1 11/15/19 25 Active empagliflozin (Jardiance) 10 mg tablet Take 1 tablet (10 mg total) by mouth 1 (one) time each day. 09/26/19 24 2024 Discontinued Active Problems Problem Noted Date Diagnosed Date Fatty liver 05/01/2020 Anxiety 04/08/2020 Diabetes mellitus with renal manifestation ([facility] V24, [facility] V28) 01/28/2017 Mixed hyperlipidemia 03/05/2014 Incisional hernia 10/15/2013 Overview (05/31/2024): No surgery as of 2013 Type 2 diabetes mellitus wit h neurological manifestations, controlled ([facility] V24, [facility] V28) 08/16/2011 Overview (05/31/2024): CTS Obesity, unspecified 07/12/2011 Obstructive sleep apnea 10/09/2008 Overview (05/31/2024): Uses cpap Regularly [facility] Split Night Polysomnogram Date 10/01/2008 wt [...] Encounters Date Type Department Care Team Description 12/12/2024 10:30 AM EDT Office Visit Orthopedic Surgery - [address] [address] Rony Bajwa, DPM Ingrowing nail (Primary Dx); Dermatophytosis of nail; Diabetic mononeuropathy simplex (CMS/HCC V24, CMS/HCC V28); Pain in toe of right foot; Pain in toe of left foot from Last 3 Months Immunizations Name Administration Dates Next Due Pneumococcal polysaccharide 23 valent (Pneumovax 23) 2yo and older 06/11/2013 Td Tetanus diptheria (Tdvax) 7yo and older 10/13 Td, Unspecified 10/15/2004 Surgical History Surgery Date Site/Laterality Comments CARPAL TUNNEL RELEASE PROCEDURE: NC NEUROPLASTY &/TRANSPOS MEDIAN NRV CARPAL TUNNE; COMMENT: done on rt hand OTHER SURGICAL HISTORY PROCEDURE: HISTORY OTHER; COMMENT: benign gastric tumor UPPER GASTROINTESTINAL ENDOSCOPY 06/19/2007 PROCEDURE: NC UPPER GI ENDOSCOPY PERFORMED; COMMENT: gastric lesion COLONOSCOPY 06/19/2007 PROCEDURE: HISTORICAL COLONOSCOPY; COMMENT: diverticulosis COLONOSCOPY 12/22/2018 PROCEDURE: HISTORICAL COLONOSCOPY; COMMENT: diverticulosis; no polyps. TOTAL KNEE ARTHROPLASTY 2018 Bilateral PROCEDURE: NC ARTHRP KNE CONDYLE&PLATU MEDIAL&LAT COMPARTMENTS; COMMENT: Both done at the same time at [facility] SHOULDER SURGERY 08/05/2023 PROCEDURE: HISTORICAL SHOULDER [...] - - Weight 117 kg (257 lb) 12/12/2024 10:41 AM EDT Height 172.7 cm (5' 7.99 ) 12/12/2024 10:41 AM E DT Body Mass Index 39.09 12/12/2024 10:41 AM EDT Plan of Treatment Upcoming Encounters Date Type Department Care Team (Late st Contact Info) Description 03/14/2025 9:00 AM EDT Office Visit Orthopedic Surgery - [place] [address] [phone] Rony Bajwa, DPM [address] [address] Health Maintenance Due Date Last Done Comments Zoster Vaccines (1 of 2) 2006 Pneumococcal Vaccine: 50+ Years (2 of 2 - PCV) 06/11/2014 06/11/2013 RSV Immunization Adult Patients (1 - Risk 60-74 years 1-dose series) 2016 Falls Risk Assessment 08/07/2022 Medicare Annual Wellness Visit 08/07/2022 Social Influencers of Health Screening 08/07/2022 COVID-19 Vaccine ( season) 2024 Diabetes: Annual Retina Eye Exam 08/01/2024 08/01/2023 Diabetes: Blood Sugar Control Test (HGBA1C) 12/11/2024 06/12/2024, 02/10/2024, 02/10/2024 Diabetes: Annual Urine Albumin-Creatinine Ratio (uACR) 02/09/2025 02/10/2024 Diabetes: Annual Foot Exam 02/26/2025 02/27/2024 Influenza Vaccine (Season Ended) 2025 Depression Screening 05/15/2025 05/15/2024 Diabetes: Annual GFR [...] age to complete this topic Meningococcal B Vaccine Aged Out No l onger eligible based on patient's age to complete [...] Maintenance Results * Depression Screening (05/15/2024) Pathologist [facility] Depression Screening abstracted Result [facility] Provider HEALTH MAINTENANCE Final Result * Diabetes Foot Exam (02/27/2024) [facility] Diabetes: Annual Foot Exam abstracted Result [facility] HEALTH MAINTENANCE Final Result * Urine Albumin Creatinine Ratio (02/10/2024) [facility] Urine Albumin Creatinine Ratio abstracted Result [facility] HEALTH MAINTENANCE Final Result * Annual BMP Blood Test (02/10/2024) [facility] Annual BMP Blood Test abstracted Result [facility] HEALTH MAINTENANCE Final Result * (ABNORMAL) Hemoglobin A1c (02/10/2024) [facility] Hemoglobin A1C 8.3(A) <=6.5 % Blood Venous blood specimen / Unknown Result [facility] Provider LAB BLOOD ORDERABLES Noreen l Result * (ABNORMAL) Lipid panel (02/10/2024) [facility] LDL/HDL Ratio 5(A) 0 - 4 Triglycerides 219(A) 0 - 150 mg/dL Cholesterol 241(A) 0 - 200 mg/dL HDL 53 >=40 mg/dL LDL Cholesterol 145(A) 0 - 100 mg/dL Blood Venous blood specimen / Unknown Result [facility] LAB BLOOD ORDERABLES Noreen l Result * Diabetes Eye Exam (08/01/2023) [facility] Diabetes: Annual Retina Eye Exam abstracted Result [facility] HEALTH MAINTENANCE Final Result * Colonoscopy (12/22/2018) [facility] Colonoscopy no interpretation , abstracted Anatomical Region Laterality Modality Other Result [facility] HEALTH MAINTENANCE Final Result * Hepatitis C Screening (03/04/2014) Hepatitis C Screening abstracted us Historical Provider HEALTH MAINTENANCE Final Result * Abdominal Aortic Aneurysm Screen (09/09/2011) Abdominal Aortic Aneurysm (AAA) Screening abstracted Anatomical Region Laterality Modality Other Historical Provider HEALTH MAINTENANCE Final Result from Last 3 Months or Most Recently Relevant to Health Maintenance Insurance MEDICARE Care Teams Game Attendant Relationship Specialty Start Date End Date Favian Reynoso PA [address] [place] [address] PCP - General Internal Medicine 01/21/21
--- OUTSIDE RECORDS SUMMARY | 2024-12-13 09:18 | XMS_ITS | Encounter Summary ---
Author Organization [facility] Address [address] [place] [address] Care Team Providers Care Procurement Manager Name Role Phone Favian Reynoso Primary Care Provider [phone] Reason for Visit * Reason Comments Follow-up Diabetic foot care Encounter Details Date Type Department Care Team (Late st Contact Info) Description 12/12/2024 10:30 AM EDT Office Visit Orthopedic Surgery - [place] [address] [phone] Rony Bajwa, DPM [address] [address] Ingrowing nail (Primary Dx); Dermatophytosis of nail; Diabetic mononeuropathy simplex (CMS/HCC V24, CMS/HCC V28); Pain in toe of right foot; Pain in toe of left foot Social History Tobacco Use Types Packs/Day Years [...] on file Sexual Orientation Not on file documented as of this encounter Last Filed Vital Signs Vital Sign Reading Time Taken Comments Blood Pressure - - Pulse - - Temperature - - Respiratory Rate - - Oxygen Saturation - - Inhaled Oxygen Concentration - - Weight 117 kg (257 lb) 12/12/2024 10:41 AM EDT Height 172.7 cm (5' 7.99 ) 12/12/2024 10:41 AM E DT Body Mass Index 39.09 12/12/2024 10:41 AM EDT documented in this encounter Progress Notes * Rony Bajwa, CONOR - 12/12/2024 10:30 AM EDT Last PCP visit:Referring MD: Lucrecia Leong PA 06/14/24 S Patient is here for evaluation of his feet he is a type II diabetic is numbness and tingling to hisfeet does not his nose along a painful thickened abnormally curved to the ground to his skin he states that he is insulin-dependent does note that he had a right shoulder trauma making for double andbend over and touch his feet numbness and tingling occasionally at night pain is a 3 out of 10 on visual analog scale I Reports that his pain discomfort isimproving his discoloration has been improving continues to fromingrowing nails reports ingrown nails both great toes have become worse more painful ROS: GENERAL: Pt denies nausea, fever, vomiting, chills, or shortness of breath. Pt in NAD. CARDIOLOGY: pt denies chest pain, palpitations LUNGS: pt denies shortness of breath MUSCULOSKELETAL: See HPI, otherwise no joint pain or swelling, back pain, or muscle pain. SKIN: see HPI, otherwise no lesions, rash or itching NEURO: No persistent headache, weakness or numbness The remainder of the review of systems is noncontributory PAST MEDICAL HISTORY: Patient Active Problem List Diagnosis Anxiety Benign essential hypertension Carpal tunnel syndrome Diabetes mellitus with renal manifestation ([facility] V24, [facility] V28) Diverticulitis of colon without hemorrhage Osteoarthrosis, forearm Osteoarthrosis, hand Esophageal reflux Fatty liver Incisional hernia Mixed hyperlipidemia Obesity, unspecified Obstructive sleep apnea Type 2 diabetes mellitus with neurological manifestations, controlled ([facility] V24, [facility] V28) SOCIAL HISTORY: Social History Tobacco Use Smoking status: Former Current packs/day: 0.00 Average packs/day: 1 pack/day for 28.5 years (28.5 ttl pk-yrs) Types: Cigarettes Start date: 02/13/1971 Quit date: 08/29/1999 Years since quittin.3 Smokeless tobacco: Never Substance Use Topics Alcohol use: Yes ACTIVE MEDICATIONS: Outpatient Medications Marked as Taking for the 12/12/24 encounter (Office Visit) with Rony Sylvester DPM Medication Sig Dispense Refill acetaminophen (TYLENOL) 500 mg capsule Take 1,000 mg by mouth. ascorbic acid (VITAMIN C) 500 mg tablet Take 500 mg by mouth. BD Erin 2nd Gen Pen Needle 32 gauge x 5/32 needle USE TO INJECT INSULIN INTO THE SKIN ONCE DAILY 100 each 1 blood sugar diagnostic (FreeStyle Lite Strips) test strip USE TO TEST BLOOD SUGAR ONCE DAILY blood-glucose meter kit As directed cholecalciferol (VITAMIN D-3) 25 mcg (1,000 unit) tablet Take by mouth. diclofenac (VOLTAREN) 75 mg EC tablet TAKE 1 TABLET BY MOUTH TWICE A DAY 180 tablet 1 FREESTYLE LANCETS MISC Use to test blood glucose bid glipiZIDE (GLUCOTROL XL) 10 mg 24 hr tablet Take 1 tablet (10 mg total) by mouth 1 (one) time each day. insulin glargine (Lantus Solostar U-100 Insulin) 100 unit/mL (3 mL) injection pen INJECT 40 UNITS OF INSULIN SUBCUTANEOUSLY AT BEDTIME. Jardiance 10 mg tablet TAKE 1 TABLET BY MOUTH EVERY DAY 90 tablet 1 lisinopril (PRINIVIL,ZESTRIL) 40 mg tablet Take 1 tablet (40 mg total) by mouth 1 (one) time each day. omeprazole (PriLOSEC) [address] capsule Take 1 capsule (20 mg total) by mouth 1 (one) time each day. UNABLE TO FIND CPAP Historical (HISTORICAL CPAP) ALLERGIES: Allergies Allergen Reactions Shellfish Derived Rash Iodinated Contrast Media Hives HIVES, SOB Oxycodone-Acetaminophen respiratory problems PHYSICAL EXAM: Visit Vitals Ht 1.727 m (67.99 ) Wt 117 kg (257 lb) BMI 39.09 kg/m?? Smoking Status Former BSA 2.28 m?? PODIATRIC EXAMINATION: GENERAL: Patient appears well nourished, with NAD. VASCULAR: Dorsalis pedis pulses are 2/4 bilaterally and Posterior tibial pulses are 2/4 bilaterally. Capillary filling time within normal limits the digits. No pallor on elevation or rubor on dependency. Positive hair growth. No varicosities. Denies rest pain or claudication pain. NEUROLOGICAL: Sharp/dull sensation , protective sensation 8/10 with 5.07 semmes victoria bilaterally, vibratory sensation with tuning fork intact to the tibial tuberosity. ORTHOPEDIC: Good muscle strength 5/5 of all flexors and extensors. Dorsi flexion of ankle ,10 degrees, plantar flexion WNL. No muscle atrophy. DERMATOLOGICAL:. Nails thickened discolored x 10 abnormal curvature of both great toes ingrowth medial lateral nail fold noted Annular scaling bilateral feet moccasin distribution Skin thinning texture shiny appearance diffuse hyperpigmentation bilaterally pedal hair decreased BIOMECHANICS: Ankle ROM WNL, STJ ROM wnl, MTJ ROM wnl, 1st MPJ ROM wnl. IMAGING: IMPRESSION: 1. Ingrowing nail 2. Dermatophytosis of nail 3. Diabetic mononeuropathy simplex (CMS/HCC V24, CMS/HCC V28) 4. Pain in toe of right foot 5. Pain in toe of left foot PLAN: Pt was seen and examined, history reviewed. Minor surgical procedure of nail removal with matrixectomy was discussed and reviewed versus nail removal discussed with patient risks of nail procedure including scar tissue formation reoccurrence loss of more nail deformity cosmetic changes that are undesirable Discussed with patient regarding proper glucose control, exercise, and diet. Explained to patient proper shoe gear, and importance of daily foot checks. I reviewed neuropathy and why it occurs in diabetics. I educated the patient on proper blood sugar control and the importance of an HgBA1c of less than 7.0%. I reviewed the signs and symptoms of neuropathy with the patient Pt to return for another evaluation in 3 months. Debridement of mycotic toenails 6-10: Verbal informed consent was obtained from the patient. Greater than 6 nails were aseptically debrided in thickness and length with nail nippers Rony Bajwa DPM documented in this encounter Plan of Treatment Upcoming Encounters Date Type Department Care Team (Late st Contact Info) Description 03/14/2025 9:00 AM EDT Office Visit Orthopedic Surgery - [place] [address] [phone] Rony Bajwa DPM [address] [address] documented as of this encounter Visit Diagnoses Diagnosis Ingrowing nail- Primary Dermatophytosis of nail Diabetic mononeuropathy simplex ([facility] V24, [facility] V28) Type II or unspecified type diabetes mellitus with neurological manifestations, not stated as uncontrolled Pain in toe of right foot Pain in soft tissues of limb Pain in toe of left foot Pain in soft tissues of limb documented in this encounter Care Teams Procurement Manager Relationship Specialty Start Date End Date Favian Reynoso PA [address] [place] [address] PCP - General Internal Medicine 01/21/21 documented as of this encounter
== END 2024-12-13 08:43 | disposition home or self-care (01) ==
LOC: HO.HOSX 08:42
PROVIDERS: Visit Provider Physician Assistant
DX: S42.201D Unspecified fracture of upper end of right humerus, subsequent encounter for fracture with routine healing (principal)
CPT/HCPCS: 73060; 99212

== ENCOUNTER 2024-12-13 13:49 | Outpatient (AMB) | payer MEDICARE, SELFPAY ==
--- NOTE | 2024-12-13 13:53 | MHC.OFFVIS ---
Intake Visit Reasons: PO RT humerus MARYLIN 10/23/24 NE Intake Note: Haseeb is a 69 year old male who presents today for a post operative RT humerus MARYLIN, DOS 10/23/24 NE. X-rays updated. Patient reports that he continues to have discomfort, however he feels pain is improving. He continues to do at home stretches as instructed. Allergies No Known Allergies Allergy (Verified 12/13/24 14:02) Medication List - Last Reconciled 12/13/24 by Sebastian Min PA-C acetaminophen 650 mg (2 x 325 mg) PO Q6H PRN 30 days blood sugar diagnostic (FreeStyle Lite Strips) As directed diclofenac sodium 75 mg PO BID empagliflozin (Jardiance) 10 mg PO DAILY glipizide ER 10 mg PO DAILY insulin glargine (Lantus Solostar U-100 Insulin) units subcut lisinopril 40 mg PO DAILY metformin ER mg PO omeprazole 20 mg PO DAILY sildenafil 100 mg PO DAILY HPI HPI PO RT humerus MARYLIN 10/23/24 NE: Details: 69-year-old male returns to the office today 6 weeks status post removal of hardware from his right proximal humerus on 10/23/[address] Lantigua. He states his pain is improving however he continues to have significant limitations with his right arm which include reaching overhead or behind his head and behind the coronal plane of his body. [facility] Medical History Erectile dysfunction Hypertension Diabetes Surgical History Hx of shoulder surgery Hx of colonoscopy H/O total knee replacement Social History Household Members: Spouse Are you a primary plant health care technician to a significant other at home: No Do you presently have visiting nurse or other home services: No Patient Tobacco Use Status: Never used Tobacco Second Hand Smoke Exposure: No Review of Systems Const All systems reviewed & are unremarkable except as noted in HPI and below Physical Exam Extrem Other: Right shoulder incision well healed. He can bring his hand to the side of his head. Difficulty with reaching behind his back. Results Reviewed Results Reviewed: X-rays of the right shoulder obtained in the office today show stable proximal humerus fracture interval healing. Assessment & Plan Assessment & Plan (1) Status post open reduction and internal fixation (ORIF) of fracture: Code(s): Z98.890 - Other specified postprocedural states; Z87.81 - Personal history of (healed) traumatic fracture Category: Surgical Plan: We discussed options which include continued conservative management versus surgical intervention which would entail a total shoulder arthroplasty. I did briefly discuss with Dr. Lantigua in the office today the timeframe for proceeding with surgical intervention. The patient will need to be 3 months status post previous surgery. I did explain this to the patient and his partner. He should continue working on scapular stabilization and motion. Our goal is that his pain will continue to improve over the next 6 weeks. He will see us back with Dr. Lantigua in 6 weeks with x-rays sooner if needed. Orders: Orders XR humerus RT Today S42.301A - Unspecified fracture of shaft of humerus, right arm, initial encounter for closed fracture Coding Level of Care Code Global (60626) Diagnoses Status post open reduction and internal fixation (ORIF) of fracture Z98.890; Z87.81
--- OUTSIDE RECORDS SUMMARY | 2024-12-13 16:54 | XMS_ITS | Encounter Summary ---
Author Organization [facility] Address [address] [place] [address] Care Team Providers Care Chip Drier Name Role Phone Favian Reynoso Primary Care Provider [phone] Reason for Visit * Reason Comments Follow-up Diabetic foot care Encounter Details Date Type Department Care Team (Late st Contact Info) Description 12/12/2024 10:30 AM EDT Office Visit Orthopedic Surgery - [place] [address] [phone] Rony Bajwa, DPM [address] [address] Ingrowing nail (Primary Dx); Dermatophytosis of nail; [...] tunnel syndrome Diabetes mellitus with renal manifestation ([facility] V24, [facility] V28) Diverticulitis of colon without hemorrhage Osteoarthrosis, forearm Osteoarthrosis, hand Esophageal reflux Fatty liver Incisional hernia Mixed hyperlipidemia Obesity, unspecified Obstructive sleep apnea Type 2 diabetes mellitus with neurological manifestations, controlled ([facility] V24, CMS/[facility] V28) SOCIAL HISTORY: Social History Tobacco Use [...] AM EDT Office Visit Orthopedic Surgery - [place] [address] [phone] Rony Bajwa DPM [address] [address] documented as of this encounter Visit Diagnoses Diagnosis Ingrowing nail- Primary Dermatophytosis of nail Diabetic mononeuropathy simplex ([facility] V24, [facility] V28) Type II or unspecified type diabetes mellitus with neurological manifestations, not stated as uncontrolled Pain in toe of right foot Pain in soft tissues of limb Pain in toe of left foot Pain in soft tissues of limb documented in this encounter Care Teams Chip Drier Relationship Specialty Start Date End Date Favian Reynoso PA [address] [place] [address] PCP - General Internal Medicine 01/21/21 documented as of this encounter
--- OUTSIDE RECORDS SUMMARY | 2024-12-13 16:54 | XMS_ITS | Clinical Summary ---
Author Organization 175 [facility] Address [address] [place] [address] Phone Care Team Providers Care Human Resources Designate Name Role Phone Favian Reynoso Primary Care Provider [phone] Allergies Active Allergy Reactions Criticality Noted Date [...] Anxiety 04/08/2020 Diabetes mellitus with renal manifestation ([facility] V24, [facility] V28) 01/28/2017 Mixed hyperlipidemia 03/05/2014 Incisional hernia 10/15/2013 Overview (05/31/2024): No surgery as of 2013 Type 2 diabetes mellitus wit h neurological manifestations, controlled ([facility] V24, [facility] V28) 08/16/2011 Overview (05/31/2024): CTS Obesity, unspecified [...] AM EDT Office Visit Orthopedic Surgery - [address] [phone] Rony Bajwa, DPM Ingrowing nail [...] Both done at the same time at [facility] SHOULDER SURGERY 08/05/2023 PROCEDURE: HISTORICAL SHOULDER [...] AM EDT Office Visit Orthopedic Surgery - [place] [address] [phone] Rony Bajwa, DPM [address] [address] Health Maintenance Due Date Last Done Comments [...] Maintenance Results * Depression Screening (05/15/2024) Pathologist [facility] Depression Screening abstracted Result [facility] Provider HEALTH MAINTENANCE Final Result * Diabetes Foot Exam (02/27/2024) [facility] Diabetes: Annual Foot Exam abstracted Result [facility] HEALTH MAINTENANCE Final Result * Urine Albumin Creatinine Ratio (02/10/2024) [facility] Urine Albumin Creatinine Ratio abstracted Result [facility] HEALTH MAINTENANCE Final Result * Annual BMP Blood Test (02/10/2024) [facility] Annual BMP Blood Test abstracted Result [facility] HEALTH MAINTENANCE Final Result * (ABNORMAL) Hemoglobin A1c (02/10/2024) [facility] Hemoglobin A1C 8.3(A) <=6.5 % Blood Venous blood specimen / Unknown Result [facility] Provider LAB BLOOD ORDERABLES Noreen l Result * (ABNORMAL) Lipid panel (02/10/2024) [facility] LDL/HDL Ratio 5(A) 0 - 4 Triglycerides 219(A) 0 - 150 mg/dL Cholesterol 241(A) 0 - 200 mg/dL HDL 53 >=40 mg/dL LDL Cholesterol 145(A) 0 - 100 mg/dL Blood Venous blood specimen / Unknown Result [facility] LAB BLOOD ORDERABLES Noreen l Result * Diabetes Eye Exam (08/01/2023) [facility] Diabetes: Annual Retina Eye Exam abstracted Result [facility] HEALTH MAINTENANCE Final Result * Colonoscopy (12/22/2018) [facility] Colonoscopy no interpretation , abstracted Anatomical Region Laterality Modality Other Result [facility] HEALTH MAINTENANCE Final Result * Hepatitis C Screening (03/04/2014) Hepatitis C Screening abstracted us Historical Provider HEALTH MAINTENANCE Final Result * Abdominal Aortic Aneurysm Screen (09/09/2011) Abdominal Aortic Aneurysm (AAA) Screening abstracted Anatomical Region Laterality Modality Other Historical Provider HEALTH MAINTENANCE Final Result from Last 3 Months or Most Recently Relevant to Health Maintenance Insurance MEDICARE Care Teams Human Resources Designate Relationship Specialty Start Date End Date Favian Reynoso PA [address] [place] [address] PCP - General Internal Medicine 01/21/21
== END 2024-12-13 14:18 | disposition home or self-care (01) ==
LOC: HO.HOS 13:50
PROVIDERS: Visit Provider Physician Assistant
DX: Z98.890 Other specified postprocedural states (principal); Z87.81 Personal history of (healed) traumatic fracture
CPT/HCPCS: 99024

== ENCOUNTER → 2024-12-13 13:51 | Outpatient (BNV) | payer MEDICARE, SELFPAY | PROVIDERS: Visit Provider Specialist | DX: S42.301A Unspecified fracture of shaft of humerus, right arm, initial encounter for closed fracture (principal) | CPT/HCPCS: 73060 ==

== ENCOUNTER 2025-01-28 07:51 | Outpatient (REF) | payer MEDICARE, SELFPAY ==
--- NOTE | ~2025-01-28 | XR_ITS ---
EXAMINATION: XR SHOULDER, RIGHT CLINICAL INFORMATION: M25.519 - Pain in unspecified shoulder COMPARISON: 11/01/2024. TECHNIQUE: Two views of the right shoulder. FINDINGS: Mild osteopenia. Redemonstration of an oblique fracture of the surgical neck of the right humerus, stable in position and alignment when compared with prior studies. The hardware has been removed and there are multiple screw tracks present both in the proximal and distal fracture fragments. There is some degree of surrounding bony callus abutting the fracture margins, similar when compared with the October exam. No definite bony union is evident. Skin taqueria have been removed. Remainder of the soft tissue and bony structures appear normal. XR/XR shoulder RT min 2V IMPRESSION: Stable oblique fracture through the surgical neck of the right humerus, unchanged in orientation and alignment. Perhaps minimally increased bony callus present without definite bony union. Skin taqueria have been removed. Electronically signed by: Wili Jones MD 01/28/2025 12:54 PM EDT
--- OUTSIDE RECORDS SUMMARY | 2025-01-28 07:54 | XMS_ITS | Clinical Summary ---
Author Organization 175 [facility] Address [address] [place] [address] Phone Care Team Providers Care Chief Lifestyle Officer Name Role Phone Favian Reynoso Primary Care Provider [phone] [phone] Allergies Active Allergy Reactions Criticality Noted Date [...] 2nd Gen Pen Needle 32 gauge x /32 needle USE TO INJECT INSULIN INTO THE SKIN ONCE DAILY 100 each 1 5 Active diclofenac (VOLTAREN) 75 mg EC tablet TAKE 1 TABLET BY MOUTH TWICE A DAY 180 tablet 1 5 Active Jardiance 10 mg tablet TAKE 1 TABLET BY MOUTH EVERY DAY 90 tablet 1 5 Active Active Problems Problem Noted Date Diagnosed Date Fatty liver 05/01/2020 Anxiety 04/08/2020 Diabetes mellitus with renal manifestation ([facility] V24, [facility] V28) 01/28/2017 Mixed hyperlipidemia 03/05/2014 Incisional hernia 10/15/2013 Overview (05/31/2024): No surgery as of 2013 Type 2 diabetes mellitus wit h neurological manifestations, controlled ([facility] V24, [facility] V28) 08/16/2011 Overview (05/31/2024): CTS Obesity, unspecified 07/12/2011 Obstructive sleep apnea 10/09/2008 Overview (05/31/2024): Uses cpap Regularly [facility] Split Night Polysomnogram Date 10/01/2008 wt [...] AM EDT Office Visit Orthopedic Surgery - [place] [address] [place] [phone] Rony Bajwa, DPM Ingrowing nail (Primary [...] Date Site/Laterality Comments CARPAL TUNNEL RELEASE PROCEDURE: [facility] NEUROPLASTY &/TRANSPOS MEDIAN NRV CARPAL TUNNE; COMMENT: done on rt hand OTHER SURGICAL HISTORY PROCEDURE: HISTORY OTHER; COMMENT: benign gastric tumor UPPER GASTROINTESTINAL ENDOSCOPY 06/19/2007 PROCEDURE: [facility] UPPER GI ENDOSCOPY PERFORMED; COMMENT: gastric lesion COLONOSCOPY 06/19/2007 PROCEDURE: HISTORICAL COLONOSCOPY; COMMENT: diverticulosis COLONOSCOPY 12/22/2018 PROCEDURE: HISTORICAL COLONOSCOPY; COMMENT: diverticulosis; no polyps. TOTAL KNEE ARTHROPLASTY 2018 Bilateral PROCEDURE: [facility] ARTHRP KNE CONDYLE&PLATU MEDIAL&LAT COMPARTMENTS; COMMENT: Both done at the same time at [facility] SHOULDER SURGERY 08/05/2023 PROCEDURE: HISTORICAL SHOULDER [...] AM EDT Office Visit Orthopedic Surgery - [place] [address] [facility] [address] [place] [phone] Rony Bajwa, DPM 175 [facility] [address] [place] [address] Health Maintenance Due Date Last Done Comments [...] Health Maintenance Results * Depression Screening (05/15/2024) Depression Screening abstracted us Historical Provider HEALTH MAINTENANCE Final Result * Diabetes Foot Exam (02/27/2024) [facility] Diabetes: Annual Foot Exam abstracted Result [facility] HEALTH MAINTENANCE Final Result * Urine Albumin Creatinine Ratio (02/10/2024) [facility] Urine Albumin Creatinine Ratio abstracted Result [facility], [facility] HEALTH MAINTENANCE Final Result * Annual BMP Blood Test (02/10/2024) [facility] Annual BMP Blood Test abstracted Result [facility] HEALTH MAINTENANCE Final Result * (ABNORMAL) Hemoglobin A1c (02/10/2024) [facility] Hemoglobin A1C 8.3(A) <=6.5 % Blood Venous blood specimen / Unknown Result [facility], [facility] LAB BLOOD ORDERABLES Noreen l Result * (ABNORMAL) Lipid panel (02/10/2024) [facility] LDL/HDL Ratio 5(A) 0 - 4 Triglycerides 219(A) 0 - 150 mg/dL Cholesterol 241(A) 0 - 200 mg/dL HDL 53 >=40 mg/dL LDL Cholesterol 145(A) 0 - 100 mg/dL Blood Venous blood specimen / Unknown Result [facility], [facility] LAB BLOOD ORDERABLES Noreen l Result * Diabetes Eye Exam (08/01/2023) [facility] Diabetes: Annual Retina Eye Exam abstracted Result [facility], [facility] HEALTH MAINTENANCE Final Result * Colonoscopy (12/22/2018) [facility] Colonoscopy no interpretation , abstracted Anatomical Region Laterality Modality Other Result [facility], [facility] HEALTH MAINTENANCE Final Result * Hepatitis C Screening (03/04/2014) [facility] Hepatitis C Screening abstracted Result [facility], [facility] HEALTH MAINTENANCE Final Result * Abdominal Aortic Aneurysm Screen (09/09/2011) Abdominal Aortic Aneurysm (AAA) Screening abstracted Anatomical Region Laterality Modality Other us Historical Provider HEALTH MAINTENANCE Final Result from Last 3 Months or Most Recently Relevant to Health Maintenance Insurance MEDICARE Care Teams Chief Lifestyle Officer Relationship Specialty Start Date End Date Favian Reynoso PA [address] [place] [phone] PCP - General Internal Medicine 01/21/21
== END 2025-01-28 07:52 | disposition home or self-care (01) ==
LOC: HO.HOSX 07:51
PROVIDERS: Visit Provider Orthopaedic Surgery
DX: M25.511 Pain in right shoulder (principal); S42.211D Unspecified displaced fracture of surgical neck of right humerus, subsequent encounter for fracture with routine healing; Z98.890 Other specified postprocedural states
CPT/HCPCS: 73030; 99212

== ENCOUNTER 2025-01-28 09:25 | Outpatient (AMB) | payer MEDICARE, SELFPAY ==
--- NOTE | 2025-01-28 09:31 | MHC.OFFVIS ---
Vital Signs 01/28/25 09:45 Height 5 ft 8 in Weight 240 lb BMI 36.5 Intake Visit Reasons: OV - Discuss Right TSA Intake Note: Haseeb is a 69 year old right hand dominant male who presents today to discuss Right TSA. Hx of Rt Humerus ORIF 08/05/23 with MARYLIN on 10/23/24. Allergies No Known Allergies Allergy (Verified 01/28/25 09:45) HPI HPI OV - Discuss Right TSA: Details: Haseeb is a 69 year old right hand dominant male who presents today to discuss Right TSA. Hx of Rt Humerus ORIF 08/05/23 with AMRYLIN on 10/23/24. He comes in today still unable to use arm meaningful way. Pain and loss of abduction are his primary complaints. I recently removed hardware and that did help him feel better but he would like to return to his normal function. PFSH Medical History Erectile dysfunction Hypertension Diabetes Surgical History Hx of shoulder surgery Hx of colonoscopy H/O total knee replacement Social History Household Members: Spouse Are you a primary career based intervention coordinator to a significant other at home: No Do you presently have visiting nurse or other home services: No Patient Tobacco Use Status: Never used Tobacco Second Hand Smoke Exposure: No Physical Exam Vital Signs: BMI result Body Mass Index 36.5 Extrem Other: Right shoulder incision well healed. He can bring his hand to the side of his head. Difficulty with reaching behind his back. Results Reviewed Results Reviewed: I personally reviewed relevant radiographs. 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 At this point I think he needs a shoulder arthroplasty. Given the nonunion I recommend that he have this done at a tertiary care center. I discussed this with him. He is amenable to the plan. I work to arrange this for him. Should he feel any questions arise he can feel free to contact my office. Orders: Orders XR shoulder RT min 2V 01/28/25 M25.519 - Pain in unspecified shoulder Coding Level of Care Code Est Pt Level 3 (95517) Diagnoses Closed fracture of proximal end of right humerus, unspecified fracture morphology, initial encounter S42.201A Encounter type: initial encounter Fracture type: closed Fracture morphology: unspecified fracture morphology
[2025-01-28 09:45] VITALS: BMI 36.5
== END 2025-01-28 10:17 | disposition home or self-care (01) ==
LOC: HO.HOS 09:27
PROVIDERS: Visit Provider Orthopaedic Surgery
DX: S42.201A Unspecified fracture of upper end of right humerus, initial encounter for closed fracture (principal)
CPT/HCPCS: 99213

== ENCOUNTER → 2025-01-28 09:28 | Outpatient (BNV) | payer MEDICARE, SELFPAY | PROVIDERS: Visit Provider Radiology Diagnostic Radiology | DX: M25.511 Pain in right shoulder (principal) | CPT/HCPCS: 73030 ==